=== PATIENT | female | born 1945 | race Caucasian/White ===

== ENCOUNTER 2022-05-11 14:10 | Emergency (ER) | payer OTHER, BC ==
--- NOTE | 2022-05-11 14:38 | EDPHYS ---
Physician Documentation [facility] Name: Tram Mahajan Age: 76 yrs Sex: Female : 1945 Arrival Date: 05/11/2022 Time: 14:13 Bed IW3 Private MD: Travon Gomez S ED Physician Titi Delaney HPI: 05/11 14:41 This 76 yrs old Female presents to ER via Ambulatory with complaints of Constipation. sb4 14:41 Patient is a 76-year-old female with Parkinson's who presented to the emergency sb4 department with complaints of constipation. Patient states that she has not had a bowel movement in 4 days. She denies any abdominal pain, nausea, vomiting. She states that is typical for her to go 4 days without a bowel movement but feels "blocked up" she denies any opioid use.. Historical: - Allergies: 14:32 PENICILLINS; ko1 - PMHx: 14:32 Parkinson's disease; ko1 - Immunization history:: Adult Immunizations unknown. - Social history:: Smoking status: Patient denies any tobacco usage or history of. ROS: 14:41 Constitutional: Negative for fever, chills, and weight loss, Eyes: Negative for injury, sb4 pain, redness, and discharge, Cardiovascular: Negative for chest pain, palpitations, and edema, Respiratory: Negative for shortness of breath, cough, wheezing, and pleuritic chest pain, : Negative for injury, bleeding, discharge, and swelling, MS/Extremity: Negative for injury and deformity, Skin: Negative for injury, rash, and discoloration. 14:41 Abdomen/GI: Positive for constipation, Negative for abdominal pain, nausea, vomiting, and diarrhea. Exam: 14:41 Constitutional: This is a well developed, well nourished patient who is awake, alert, sb4 and in no acute distress. Head/Face: Normocephalic, atraumatic. Eyes: Extra-ocular motions intact. Periorbital areas with no swelling, redness, or edema. ENT: Mucous membranes moist. Cardiovascular: Regular rate and rhythm with a normal S1 and S2. Respiratory: No increased work of breathing, no retractions or nasal flaring. Abdomen/GI: Soft, non-tender, no distension. Skin: Warm, dry with normal turgor. Normal color with no rashes, no lesions, and no evidence of cellulitis. MS/ Extremity: Pulses equal, no cyanosis. Neurovascular intact. Full, normal range of motion. 14:41 Psych: Exam negative for hallucinations, delusions, inappropriate behavior, Behavior/mood is Affect is flat. Vital Signs: 14:31 BP 135 / 74; Pulse 88; Resp 16; Temp 97.8; Pulse Ox 97% ; Weight 62.6 kg; Height 5 ft. ko1 2 in. (157.48 cm); Pain 0/10; 14:31 Body Mass Index 25.24 (62.60 kg, 157.48 cm) ko1 MDM: 14:37 Patient medically screened. sb4 14:41 Data reviewed: vital signs, nurses notes, and as a result, I will discharge patient. ED sb4 course: Discussed with patient that there is no need for further workup. Vitals are stable. She has no abdominal pain or distension. Will give lactulose here and dc with prescription for colace. Patient is agreeable with plan of treatment. . Administered Medications: 14:50 Drug: Lactulose 10 grams Volume: 15 ml; Route: PO; ko1 Disposition: 05/12 07:14 Co-signature as Attending Physician, Titi Delaney MD I reviewed the patient's care rn provided by the Advanced Practice Provider and agree with the diagnosis and treatment plan. Disposition Summary: 05/11/22 14:37 Discharge Ordered Location: Home sb4 Problem: an ongoing problem sb4 Symptoms: are unchanged sb4 Condition: Stable sb4 Diagnosis - Constipation sb4 Followup: sb4 - With: Travon Gomez MD - When: As needed - Reason: Recheck today's complaints, Continuance of care, Re-evaluation by your physician Discharge Instructions: - Discharge Summary Sheet sb4 - Constipation, Adult, [id number] sb4 Forms: - Medication Reconciliation Form sb4 - Thank You Letter sb4 - Antibiotic Education sb4 - Prescription Opioid Use sb4 Prescriptions: - Colace 100 mg Oral Tablet - take 1 tablet by ORAL route every 12 hours; 14 tablet; Refills: 0, Product sb4 Selection Permitted Signatures: Titi Delaney MD MD rn Oliver, Kathy, RN RN ko1 Lawanda Brink PA-C PA-C sb4
--- NOTE | 2022-05-11 14:38 | ER ---
Nurse's Notes [facility] Name: Tram Mahajan Age: 76 yrs Sex: Female : 1945 Arrival Date: 05/11/2022 Time: 14:13 Bed IW3 Private MD: Travon Gomez S Diagnosis: Constipation Presentation: 05/11 14:31 Chief complaint: Patient states: I am constipated and cant have a bowel movement, last ko1 bm was 4 days ago. Coronavirus screen: At this time, the client does not indicate any symptoms associated with coronavirus-19. Ebola Screen: No symptoms or risks identified at this time. Initial Sepsis Screen: Does the patient meet any 2 criteria? No. Patient's initial sepsis screen is negative. Does the patient have a suspected source of infection? No. Patient's initial sepsis screen is negative. Risk Assessment: Do you want to hurt yourself or someone else? Patient reports no desire to harm self or others. Onset of symptoms was May 11, 2022. 14:31 Method Of Arrival: Ambulatory ko1 14:31 Acuity: IRMA 4 ko1 Triage Assessment: 14:32 General: Appears in no apparent distress. uncomfortable, Behavior is calm, cooperative, ko1 appropriate for age. Pain: Denies pain. GI: Reports constipation. Historical: - Allergies: 14:32 PENICILLINS; ko1 - PMHx: 14:32 Parkinson's disease; ko1 - Immunization history:: Adult Immunizations unknown. - Social history:: Smoking status: Patient denies any tobacco usage or history of. Screenin:53 [facility] ED Fall Risk Assessment (Adult) History of falling in the last 3 months, ko1 including since admission No falls in past 3 months (0 pts) Confusion or Disorientation No (0 pts) Intoxicated or Sedated No (0 pts) Impaired Gait No (0 pts) Mobility Assist Device Used No (0 pt) Altered Elimination No (0 pt) Score/Fall Risk Level 0 - 2 = Low Risk Oriented to surroundings, Maintained a safe environment, Educated pt \T\ family on fall prevention, incl call for assistance when getting out of bed, Assessed \T\ reinforced patient's understanding of fall precautions, Provided non-skid footwear, Hourly rounding (assess needs \T\ fall precautionary measures) done, Used ambulatory aids as needed (educated on \T\ assisted with), Used gait belt as appropriate. Abuse screen: Denies threats or abuse. Denies injuries from another. Nutritional screening: No deficits noted. Tuberculosis screening: No symptoms or risk factors identified. Assessment: 14:53 General: Appears in no apparent distress. comfortable, Behavior is calm, cooperative, ko1 appropriate for age. Pain: Denies pain. Neuro: No deficits noted. Cardiovascular: No deficits noted. Respiratory: No deficits noted. GI: Bowel sounds present X 4 quads. Abd is soft and non tender X 4 quads. GI: Reports constipation. : No deficits noted. EENT: No deficits noted. Derm: No deficits noted. Musculoskeletal: No deficits noted. Vital Signs: 14:31 BP 135 / 74; Pulse 88; Resp 16; Temp 97.8; Pulse Ox 97% ; Weight 62.6 kg; Height 5 ft. ko1 2 in. (157.48 cm); Pain 0/10; 14:31 Body Mass Index 25.24 (62.60 kg, 157.48 cm) ko1 ED Course: 14:13 Patient arrived in ED. as 14:14 Travon Gomez MD is Private Physician. as 14:16 Lawanda Brink [facility]. sb4 14:16 Titi Delaney MD is Attending Physician. sb4 14:32 Triage completed. ko1 14:32 Arm band placed on right wrist. Patient placed in waiting room, Patient notified of ko1 wait time. 14:37 Travon Gomez MD is Referral Physician. sb4 14:53 Patient has correct armband on for positive identification. ko1 14:53 No provider procedures requiring assistance completed. Patient did not have IV access ko1 during this emergency room visit. Administered Medications: 14:50 Drug: Lactulose 10 grams Volume: 15 ml; Route: PO; ko1 Medication: 14:53 VIS not applicable for this client. ko1 Outcome: 14:37 Discharge ordered by . sb4 14:53 Discharged to home ambulatory. ko1 14:53 Condition: stable 14:53 Discharge instructions given to patient, Instructed on discharge instructions, follow up and referral plans. medication usage, Demonstrated understanding of instructions, follow-up care, medications, Prescriptions given X 1. 14:55 Patient left the ED. ko1 Signatures: Heiyd Laboy Kathy, RN RN ko1 Lawanda Brink, BETHEL PAOriana sb4
[2022-05-11] MEDS ORDERED: LACTULOSE 20 GM/30 ML UCUP ONE (14:54)
[2022-05-11 15:19] VITALS: BP 135/74; TEMP 97.8; O2SAT 97
== END 2022-05-11 14:55 | disposition home or self-care (01) ==
LOC: ER 14:10
DX: K59.00 Constipation, unspecified (principal); Z88.0 Allergy status to penicillin; G20 Parkinson's disease
CPT/HCPCS: 99283

== ENCOUNTER 2022-08-22 14:38 | Emergency (ER) | payer OTHER, BC ==
[2022-08-22] MEDS ORDERED: HYDROCODONE/APAP 5/325 MG TAB ONE (17:05)
--- NOTE | 2022-08-22 18:03 | RAD REPORT ---
EXAM DESCRIPTION: RAD - Pelvis - 08/22/2022 4:06 pm CLINICAL HISTORY: left hip pain COMPARISON: No comparisons TECHNIQUE: Single AP view of the pelvis. FINDINGS: The visualized pelvic ring is intact. No suspicious osseous lesions. No significant degene rative changes or erosions of the hip joints. Other pelvic joints are unremarkable. Visualized aspect s of the abdomen and soft tissues are unremarkable. Degenerative changes at L4-5 with asymmetric disc space narrowing on the left. IMPRESSION: No acute osseous abnormality of the bony pelvis.
--- NOTE | 2022-08-22 18:03 | RAD REPORT ---
EXAM DESCRIPTION: RAD - Femur Left - 08/22/2022 4:06 pm CLINICAL HISTORY: PAIN COMPARISON: No comparisons TECHNIQUE: Left femur, 2 views. FINDINGS: No fracture is identified. There is no dislocation or periosteal reaction noted. No acute or suspicious bony finding. [id number] degenerative changes of the knee. IMPRESSION: Negative left femur examination.
--- NOTE | 2022-08-22 20:04 | RAD REPORT ---
EXAM DESCRIPTION: CT - Stone Protocol - 08/22/2022 7:29 pm CLINICAL HISTORY: low back and left hip pain COMPARISON: No comparisons TECHNIQUE: Thin cut axial CT imaging of the abdomen and pelvis was performed without IV contrast. Mu ltiplanar reformats were generated and reviewed. All CT scans are performed using dose optimization technique as appropriate and may include automated exposure control or mA/KV adjustment according to patient size. FINDINGS: No suspicious findings in the lung bases. The liver demonstrates multiple well-circumscribed fluid attenuation ovoid lesions the largest in the left lobe measuring 3.1 centimeter. Adrenal glands, spleen, and pancreas show no suspicious findings . Gallbladder and biliary tree are also without suspicious finding. Symmetric renal contour, without suspicious parenchymal findings within limits of noncontrast techniq ue. No evidence of hydroureteronephrosis. Left renal mid pole 3 millimeter nonobstructing calculus. . No dilated bowel loops or bowel wall thickening. Colonic diverticulosis. Left adnexal 5.6 x 4.7 centi meter cyst with punctate calcifications along its posteroinferior wall. No free air, free fluid or in flammatory stranding. No hernia, mass or bulky lymphadenopathy. The urinary bladder is without signif icant finding. No suspicious bony findings. Degenerative changes of the lumbar spine with levoconvex scoliosis cente red at L1-2. IMPRESSION: Nonobstructing left renal 3 millimeter calculus. Incidentally noted left adnexal 5.6 x 4.7 centimeter cyst with wall calcifications. This is likely be nign, and can be sonographically evaluated on an outpatient basis for better characterization. No other acute intra-abdominal process.
[2022-08-22] MEDS ORDERED: FENTANYL CITR 100 MCG/2 ML ONE (20:18)
--- NOTE | 2022-08-22 21:08 | ER ---
Nurse's Notes [facility] Name: Tram Mahajan Age: 76 yrs Sex: Female : 1945 Arrival Date: 08/22/2022 Time: 14:38 Bed 15 Private MD: Travon Gomez S Diagnosis: Pain in left hip;Sciatica, left side Presentation: 08/22 15:28 Chief complaint: Patient states: Left hip pain since this morning "i had a charley la1 horse". Took a pain pill. Denies injury. Coronavirus screen: Vaccine status: Patient reports receiving the 2nd dose of the covid vaccine. Ebola Screen: Patient denies travel to an Ebola-affected area in the 21 days before illness onset. Initial Sepsis Screen: Does the patient meet any 2 criteria? No. Patient's initial sepsis screen is negative. Does the patient have a suspected source of infection? No. Patient's initial sepsis screen is negative. Risk Assessment: Do you want to hurt yourself or someone else? Patient reports no desire to harm self or others. Onset of symptoms was August 22, 2022. 15:28 Method Of Arrival: Ambulatory [facility] 15:28 Acuity: IRMA 3 [facility] Triage Assessment: 16:24 General: Appears in no apparent distress. Behavior is calm, cooperative, appropriate bp for age. Pain: Complains of pain in left hip. EENT: No deficits noted. Neuro: No deficits noted. Cardiovascular: No deficits noted. Respiratory: No deficits noted. GI: No signs and/or symptoms were reported involving the gastrointestinal system. : No signs and/or symptoms were reported regarding the genitourinary system. Derm: No deficits noted. Musculoskeletal: No deficits noted. Historical: - Allergies: 15:32 PENICILLINS; nj1 - PMHx: 15:32 Parkinson's disease; nj1 - PSHx: 15:33 Knee replacement, right; Brain stimulator; nj1 - Immunization history:: Client reports receiving the 2nd dose of the Covid vaccine. - Social history:: Smoking status: Patient denies any tobacco usage or history of. Screenin:26 [facility] ED Fall Risk Assessment (Adult) History of falling in the last 3 months, bp including since admission No falls in past 3 months (0 pts). Abuse screen: Denies threats or abuse. Denies injuries from another. Nutritional screening: No deficits noted. Tuberculosis screening: No symptoms or risk factors identified. Assessment: 16:26 General: SEE TRIAGE NOTE. bp 20:00 General: Appears in no apparent distress. comfortable, Behavior is calm, cooperative. lg3 Pain: Complains of pain in left hip Pain currently is 8 out of 10 on a pain scale. Neuro: No deficits noted. Avalos Agitation-Sedation Scale (RASS): 0 - Alert and Calm Level of Consciousness is awake, alert, obeys commands, Oriented to person, place, time, situation. Cardiovascular: No deficits noted. Denies chest pain, shortness of breath, Capillary refill < 3 seconds Clubbing of nail beds is absent JVD is absent Patient's skin is warm and dry. Respiratory: No deficits noted. Airway is patent Trachea midline Respiratory effort is even, unlabored, Respiratory pattern is regular, symmetrical. GI: No deficits noted. No signs and/or symptoms were reported involving the gastrointestinal system. : No deficits noted. No signs and/or symptoms were reported regarding the genitourinary system. EENT: No deficits noted. No signs and/or symptoms were reported regarding the EENT system. Derm: No deficits noted. No signs and/or symptoms reported regarding the dermatologic system. Skin is intact, is healthy with good turgor, Skin is dry, Skin is normal, Skin temperature is warm. Musculoskeletal: Reports pain in left hip. 21:19 Reassessment: Patient appears in no apparent distress at this time. No changes from lg3 previously documented assessment. Patient and/or family updated on plan of care and expected duration. Pain level reassessed. Patient is alert, oriented x 3, equal unlabored respirations, skin warm/dry/pink. Patient states feeling better. Patient states symptoms have improved. Vital Signs: 15:28 BP 157 / 74; Pulse 89; Resp 18; Temp 98.2(TE); Pulse Ox 100% on R/A; Weight 62.14 kg; nj1 Height 5 ft. 2 in. ; Pain 7/10; 20:00 BP 131 / 77; Pulse 81; Resp 17 S; Pulse Ox 100% on R/A; lg3 21:19 BP 136 / 71; Pulse 88; Resp 17 S; Pulse Ox 99% on R/A; lg3 15:28 Body Mass Index 25.06 (62.14 kg, 157.48 cm) nj1 15:28 Pain Scale: Adult nj1 ED Course: 14:42 Patient arrived in ED. mr 14:42 Travon Gomez MD is Private Physician. mr 15:14 Aguilar Javed PA is PHCP. cp 15:14 Aguilar Brown MD is Attending Physician. cp 15:32 Triage completed. nj1 15:33 Arm band placed on right wrist. nj1 16:08 XRAY Pelvis In Process Unspecified. EDMS 16:08 XRAY Femur LEFT In Process Unspecified. EDMS 16:24 Kee Acevedo, ELAINA is Primary Nurse. bp 16:26 Patient has correct armband on for positive identification. Bed in low position. Call bp light in reach. Side rails up X2. 19:31 CT Stone Protocol In Process Unspecified. EDMS 21:19 No provider procedures requiring assistance completed. Patient did not have IV access lg3 during this emergency room visit. Administered Medications: 17:00 Drug: HYDROcodone-acetaminophen PO 5 mg-325 mg 1 tabs Route: PO; bp 20:41 Follow up: Response: No adverse reaction; No change in condition lg3 20:31 Drug: fentaNYL (PF) IM 25 mcg Route: IM; Site: right deltoid; lg3 20:58 Follow up: Response: No adverse reaction; Pain is decreased; RASS: Alert and Calm (0) lg3 21:18 Drug: Lidoderm Topical Patch 5 % (700 mg/patch) 1 patches Route: Topical; Site: lg3 affected area; 21:18 Follow up: Response: No adverse reaction lg3 21:18 Drug: Dexamethasone IM 10 mg Route: IM; Site: left gluteus; lg3 21:18 Follow up: Response: No adverse reaction lg3 21:18 Drug: Ketorolac IM 15 mg Route: IM; Site: left gluteus; lg3 21:18 Follow up: Response: No adverse reaction lg3 Medication: 16:26 VIS not applicable for this client. bp Outcome: 21:07 Discharge ordered by . cp 21:19 Discharged to home via wheelchair, with family. lg3 21:19 Condition: stable 21:19 Discharge instructions given to patient, family, Instructed on discharge instructions, follow up and referral plans. medication usage, Demonstrated understanding of instructions, follow-up care, medications, Prescriptions given X 2. 21:27 Patient left the ED. lg3 Signatures: Dispatcher [employer] EDCO Marcy Pal mr Aguilar Javed PA PA cp Peltier, Brian, RN RN bp Glo Márquez RN RN lg3 Iesha Bryan RN RN nj1 Corrections: (The following items were deleted from the chart) 15:34 15:28 Pulse 89bpm; Resp 18bpm; Pulse Ox 100% RA; Temp 98.2F Temporal; 62.14 kg; Height nj1 5 ft. 2 in.; BMI: 25.0; Pain 7/10, Adult; nj1
--- NOTE | 2022-08-22 21:08 | EDPHYS ---
Physician Documentation [facility] Name: Tram Mahajan Age: 76 yrs Sex: Female : 1945 Arrival Date: 08/22/2022 Time: 14:38 Bed 15 Private MD: Travon Gomez S ED Physician Aguilar Brown HPI: 08/22 16:00 This 76 yrs old Female presents to ER via Ambulatory with complaints of Hip Pain. cp 16:00 The patient or guardian reports pain. sustained from unknown reason, There is no cp obvious deformity, The patient is able to ambulate with assistance. The patient is able to bear partial body weight. The complaints affect the left hip. Onset: The symptoms/episode began/occurred this morning. Associated signs and symptoms: Pertinent positives: left buttock pain, Pertinent negatives: abdominal pain, chest pain, diarrhea, dizziness, dysuria, fever. Severity of symptoms: in the emergency department the symptoms are unchanged, despite home interventions. Patient denies injury. Reports pain since this morning. Took acetaminophen w/o relief. Historical: - Allergies: 15:32 PENICILLINS; nj1 - PMHx: 15:32 Parkinson's disease; nj1 - PSHx: 15:33 Knee replacement, right; Brain stimulator; nj1 - Immunization history:: Client reports receiving the 2nd dose of the Covid vaccine. - Social history:: Smoking status: Patient denies any tobacco usage or history of. ROS: 16:05 Constitutional: Negative for body aches, chills, fever, poor PO intake. cp 16:05 Eyes: Negative for injury, pain, redness, and discharge. cp 16:05 ENT: Negative for drainage from ear(s), ear pain, sore throat, difficulty swallowing, difficulty handling secretions. 16:05 Cardiovascular: Negative for chest pain, edema, palpitations. 16:05 Respiratory: Negative for cough, shortness of breath, wheezing. 16:05 Abdomen/GI: Negative for abdominal pain, nausea, vomiting, and diarrhea. 16:05 Back: Positive for pain to left buttock, Negative for injury or acute deformity. 16:05 MS/extremity: Positive for pain, of the left hip, Negative for injury or acute deformity. 16:05 Neuro: Negative for altered mental status, dizziness, headache, numbness, syncope, weakness. 16:05 All other systems are negative. Exam: 16:10 Constitutional: The patient appears in no acute distress, alert, awake, cp non-diaphoretic, non-toxic, well developed, well nourished, uncomfortable. 16:10 Head/Face: Normocephalic, atraumatic. cp 16:10 Eyes: Periorbital structures: appear normal, Conjunctiva: normal, no exudate, no injection, Sclera: no appreciated abnormality, Lids and lashes: appear normal, bilaterally. 16:10 ENT: External ear(s): are unremarkable, Nose: is normal, Mouth: Lips: moist, Oral mucosa: moist, Posterior pharynx: is normal, airway is patent, no erythema, no exudate. 16:10 Neck: ROM/movement: is normal, is supple, without pain, no range of motions limitations. 16:10 Chest/axilla: Inspection: normal, Palpation: is normal, no crepitus, no tenderness. 16:10 Cardiovascular: Rate: normal, Rhythm: regular. 16:10 Respiratory: the patient does not display signs of respiratory distress, Respirations: normal, no use of accessory muscles, no retractions, labored breathing, is not present, Breath sounds: are clear throughout, no decreased breath sounds, no stridor, no wheezing. 16:10 Abdomen/GI: Inspection: abdomen appears normal, Palpation: abdomen is soft and non-tender. 16:10 Back: pain, that is moderate, of the left low back, ROM is painful, with all movement, vertebral tenderness, is not appreciated. 16:10 Musculoskeletal/extremity: Extremities: noted in the left hip: pain, tenderness, There is no evidence of decreased ROM, deformity, ROM: limited passive range of motion due to pain, in the left hip. 16:10 Neuro: Orientation: no acute changes, per family, Mentation: no acute changes, per family. Vital Signs: 15:28 BP 157 / 74; Pulse 89; Resp 18; Temp 98.2(TE); Pulse Ox 100% on R/A; Weight 62.14 kg; nj1 Height 5 ft. 2 in. ; Pain 7/10; 20:00 BP 131 / 77; Pulse 81; Resp 17 S; Pulse Ox 100% on R/A; lg3 21:19 BP 136 / 71; Pulse 88; Resp 17 S; Pulse Ox 99% on R/A; lg3 15:28 Body Mass Index 25.06 (62.14 kg, 157.48 cm) nj1 15:28 Pain Scale: Adult nj1 MDM: 15:36 Patient medically screened. [facility] 17:00 Differential diagnosis: hip fracture, intertrochanteric fracture, femoral neck cp fracture, femoral shaft fracture, bursitis, sciatica, bulging disc. 21:06 Data reviewed: vital signs, nurses notes, radiologic studies, CT scan, plain films. 21:06 Consideration of Admission/Observation Escalation of care including cp admission/observation considered. I considered the following discharge prescriptions or medication management in the emergency department Medications were administered in the Emergency Department. See MAR. Counseling: I had a detailed discussion with the patient and/or guardian regarding: the historical points, exam findings, and any diagnostic results supporting the discharge/admit diagnosis, radiology results, the need for outpatient follow up, a family practitioner, to return to the emergency department if symptoms worsen or persist or if there are any questions or concerns that arise at home. Response to treatment: the patient's symptoms have markedly improved after treatment, and as a result, I will discharge patient. 08/22 15:33 Order name: XRAY Pelvis; Complete Time: 18:16 08/22 18:16 Interpretation: Report reviewed. 08/22 15:33 Order name: XRAY Femur LEFT; Complete Time: 18:16 08/22 18:16 Interpretation: Reviewed. 08/22 18:39 Order name: CT Stone Protocol; Complete Time: 20:23 cp Administered Medications: 17:00 Drug: HYDROcodone-acetaminophen PO 5 mg-325 mg 1 tabs Route: PO; bp 20:41 Follow up: Response: No adverse reaction; No change in condition lg3 20:31 Drug: fentaNYL (PF) IM 25 mcg Route: IM; Site: right deltoid; lg3 20:58 Follow up: Response: No adverse reaction; Pain is decreased; RASS: Alert and Calm (0) lg3 21:18 Drug: Lidoderm Topical Patch 5 % (700 mg/patch) 1 patches Route: Topical; Site: lg3 affected area; 21:18 Follow up: Response: No adverse reaction lg3 21:18 Drug: Dexamethasone IM 10 mg Route: IM; Site: left gluteus; lg3 21:18 Follow up: Response: No adverse reaction lg3 21:18 Drug: Ketorolac IM 15 mg Route: IM; Site: left gluteus; lg3 21:18 Follow up: Response: No adverse reaction lg3 Disposition Summary: 08/22/22 21:07 Discharge Ordered Location: Home cp Problem: new cp Symptoms: have improved cp Condition: Stable cp Diagnosis - Pain in left hip cp - Sciatica, left side cp Followup: cp - With: Private Physician - When: 2 - 3 days - Reason: Recheck today's complaints Discharge Instructions: - Discharge Summary Sheet cp - Sciatica cp - Hip Pain cp - Back Exercises cp Forms: - Medication Reconciliation Form cp - Thank You Letter cp - Antibiotic Education cp - Prescription Opioid Use cp Prescriptions: - Tramadol 50 mg Oral Tablet - take 1 tablet by ORAL route every 8 hours as needed; 12 tablet; Refills: 0, cp Product Selection Permitted - Medrol (Samir) 4 mg Oral Tablets, Dose Pack - take 1 tablet by ORAL route as directed - follow package instructions; 1 cp packet; Refills: 0, Product Selection Permitted Signatures: Dispatcher [employer] EDAguilar Saenz MD MD cha Page, Corey, PA PA cp Kee Acevedo RN RN bp Glo Márquez, ELAINA RN lg3 Iesha Bryan RN RN nj1 Corrections: (The following items were deleted from the chart) 21:21 20:25 Misc. Order ordered. cp lg3
[2022-08-22] MEDS ORDERED: KETOROLAC 30 MG/ML INJ ONE (21:18)
[2022-08-22] MEDS ORDERED: LIDOCAINE 4% PATCH ONE (21:18)
[2022-08-22] MEDS ORDERED: dexAMETHasone 10 MG/ML VIAL ONE (21:18)
[2022-08-22 22:16] VITALS: TEMP 98.2
[2022-08-22 22:19] VITALS: BP 136/71; O2SAT 99
== END 2022-08-22 21:27 | disposition home or self-care (01) ==
LOC: ER 14:38
DX: M54.32 Sciatica, left side (principal); G20 Parkinson's disease; Z88.0 Allergy status to penicillin
CPT/HCPCS: 76377; 74176; 72170; 73552; J2001; J3010; J1100

== ENCOUNTER 2022-08-30 10:03 | Emergency (ER) | payer OTHER, BC ==
[2022-08-30] MEDS ORDERED: KETOROLAC 30 MG/ML INJ ONE (11:08)
--- NOTE | 2022-08-30 11:37 | RAD REPORT ---
EXAM DESCRIPTION: CT - Spine Lumbar Wo Con - 08/30/2022 11:05 am CLINICAL HISTORY: Hip pain/sciatica COMPARISON: CT abdomen and pelvis 08/22/2022 TECHNIQUE: Axial noncontrast CT imaging of the lumbar spine was performed with coronal and sagittal re-formatted images. All CT scans are performed using dose optimization technique as appropriate and may include automated exposure control or mA/KV adjustment according to patient size. FINDINGS: No acute lumbar spine fracture seen. No aggressive marrow lesions. Multilevel degenerative changes with endplate and facet remodeling, contributing to multilevel spondy lolisthesis, including 3 millimeter retrolisthesis of L3 over L4, and left lateral listhesis ease of L2 over L3 and L3 over L4, with degrees of asymmetric disc height loss most pronounced at L1-2 and L2 -3 on the right, with disc vacuum phenomenon. Paraspinal tissues are normal in thickness. No paraspinal abscess or hematoma seen. At T12-L1: Small posterior disc bulge. Asymmetric disc height loss on the right. No significant canal stenosis or neural foraminal narrowing. At L1-2: Broad-based posterior disc bulge. Asymmetric disc height loss on the right and annular land examiner alization on the left. No significant central canal stenosis. Mild right bony neural foraminal narrow ing. At L2-3: Pronounced asymmetric disc height loss on the right, with posterior disc osteophyte complex formation. Overall moderate central canal stenosis, worsened by presence of bilateral facet arthropat hy and ligamentum flavum buckling. Additional narrowing of the right lateral recess. Right severe and left moderate to severe neural foraminal narrowing. At L3-4: Posterior broad-based disc bulge with uncovering of the inferior disc annulus margin. Facet arthropathy and ligamentum flavum buckling contribute to at least moderate central canal stenosis met chris right lateral recess narrowing. Right moderate and left severe neural foraminal narrowing. At L4-5: Broad-based disc bulge. Bilateral facet arthropathy and ligamentum flavum buckling contribut e to moderate central canal stenosis. Right mild to moderate and left moderate to severe neural claudia inal narrowing. At L5-S1: Broad-based posterior disc bulge. Bilateral facet arthropathy worse on the left. No signifi cant central canal or foraminal stenosis. Intervertebral disc disease assessment is inherently limited by CT. Within these limitations, no high -grade canal stenosis suspected. Evaluation of the pelvic and abdominal structures reveals a left adnexal cystic lesion with punctate focus of wall calcification, measuring 5.6 x 4.8 centimeter. IMPRESSION: No acute findings. Advanced multilevel lumbar spine degenerative changes as detailed above with multilevel spondylolisth esis. Within limits of CT evaluation, there appears to be moderate central canal stenosis at L2-3 and L4-5 and moderate to severe central canal stenosis at L3-4. Variable degrees of neural foraminal narrowing , up to severe on the left at L3-4 and on the right at L2-3. Please consider MRI follow-up for additional assessment of disc disease and neural involvement if cli nically desired.
--- NOTE | 2022-08-30 12:06 | EDPHYS ---
Physician Documentation [facility] Name: Tram Mahajan Age: 76 yrs Sex: Female : 1945 Arrival Date: 08/30/2022 Time: 10:03 Bed 8 Private MD: Travon Gomez S ED Physician Ryan Cm HPI: 08/30 10:55 This 76 yrs old Female presents to ER via Wheelchair with complaints of Back Pain. snw 10:55 The patient presents with pain that is acute, with no known mechanism of injury. The snw symptoms are located in the left hip. Onset: The symptoms/episode began/occurred acutely. The pain radiates to the left quadriceps. Associated signs and symptoms: Pertinent positives: weakness. The problem was sustained during a fall, last week. Severity of symptoms: At their worst the symptoms were moderate, severe. It is unknown whether or not the patient has had similar symptoms in the past. pt seen here for similar complaint within the past 2 weeks, give steroids and got better. Last steroid dose was two days ago. Pt very uncomfortable this am. Historical: - Allergies: 10:12 PENICILLINS; nj1 - PMHx: 10:12 Parkinson's disease; nj1 - PSHx: 10:12 brain stimulator; Knee replacement, right; nj1 - Immunization history:: Client reports receiving the 2nd dose of the Covid vaccine. - Social history:: Smoking status: Patient denies any tobacco usage or history of. ROS: 10:52 Constitutional: Negative for fever, chills, and weight loss, Eyes: Negative for injury, snw pain, redness, and discharge, ENT: Negative for injury, pain, and discharge, Neck: Negative for injury, pain, and swelling, Cardiovascular: Negative for chest pain, palpitations, and edema, Respiratory: Negative for shortness of breath, cough, wheezing, and pleuritic chest pain, Abdomen/GI: Negative for abdominal pain, nausea, vomiting, diarrhea, and constipation, Back: Negative for injury and pain, : Negative for injury, bleeding, discharge, and swelling, Skin: Negative for injury, rash, and discoloration, Neuro: Negative for headache, weakness, numbness, tingling, and seizure, Psych: Negative for depression, anxiety, suicide ideation, homicidal ideation, and hallucinations. 10:52 MS/extremity: Positive for pain, tenderness, of the left upper thigh and left quadriceps. Exam: 10:47 Constitutional: This is a well developed, well nourished patient who is awake, alert, snw and in no acute distress. Head/Face: Normocephalic, atraumatic. Eyes: Pupils equal round and reactive to light, extra-ocular motions intact. Lids and lashes normal. Conjunctiva and sclera are non-icteric and not injected. Cornea within normal limits. Periorbital areas with no swelling, redness, or edema. ENT: Nares patent. No nasal discharge, no septal abnormalities noted. Tympanic membranes are normal and external auditory canals are clear. Oropharynx with no redness, swelling, or masses, exudates, or evidence of obstruction, uvula midline. Mucous membranes moist. Neck: Trachea midline, no thyromegaly or masses palpated, and no cervical lymphadenopathy. Supple, full range of motion without nuchal rigidity, or vertebral point tenderness. No Meningismus. Chest/axilla: Normal chest wall appearance and motion. Nontender with no deformity. No lesions are appreciated. Cardiovascular: Regular rate and rhythm with a normal S1 and S2. No gallops, murmurs, or rubs. Normal PMI, no JVD. No pulse deficits. Respiratory: Lungs have equal breath sounds bilaterally, clear to auscultation and percussion. No rales, rhonchi or wheezes noted. No increased work of breathing, no retractions or nasal flaring. Abdomen/GI: Soft, non-tender, with normal bowel sounds. No distension or tympany. No guarding or rebound. No evidence of tenderness throughout. Back: No spinal tenderness. No costovertebral tenderness. Full range of motion. Skin: Warm, dry with normal turgor. Normal color with no rashes, no lesions, and no evidence of cellulitis. Psych: Awake, alert, with orientation to person, place and time. Behavior, mood, and affect are within normal limits. 10:47 Musculoskeletal/extremity: Extremities: grossly normal except: tenderness, tenderness, , Circulation is intact in all extremities. Sensation intact. 10:47 Neuro: Orientation: is normal, Mentation: is normal, Babinski testing is normal. Vital Signs: 10:09 BP 109 / 57; Pulse 74; Resp 18; Temp 98.8; Pulse Ox 98% ; Weight 62.6 kg; Height 5 ft. nj1 2 in. ; Pain 7/10; 10:09 Body Mass Index 25.24 (62.60 kg, 157.48 cm) nj1 10:09 Pain Scale: Adult nj1 MDM: 10:09 Patient medically screened. snw 12:07 Differential diagnosis: arthritis, Fracture Osteoarthritis Osteoporosis ruptured disc, snw sprain, vertebral fracture. Data reviewed: vital signs, nurses notes, radiologic studies. I considered the following discharge prescriptions or medication management in the emergency department Medications were administered in the Emergency Department. See MAR. Counseling: I had a detailed discussion with the patient and/or guardian regarding: the historical points, exam findings, and any diagnostic results supporting the discharge/admit diagnosis, radiology results, the need for outpatient follow up, for definitive care, a neurosurgeon. Special discussion: Based on the history and exam findings, there is no indication for further emergent testing or inpatient evaluation. I discussed with the patient/guardian the need to see the primary care provider for further evaluation of the symptoms. 08/30 10:55 Order name: CT Lumbar Spine Wo Con; Complete Time: 11:46 snw 08/30 11:51 Order name: Misc. Order: please help pt ambulate with w/c or walker to assess ability; snw Complete Time: 11:58 Administered Medications: 11:23 Drug: Ketorolac IM 15 mg Route: IM; Site: left deltoid; ld1 11:58 Follow up: Response: No adverse reaction ld1 Disposition: 14:51 Co-signature as Attending Physician, Ryan SALVADOR was immediately available on-site ms3 in the Emergency Department for consultation in the care of the patient. Disposition Summary: 08/30/22 12:05 Discharge Ordered Location: Home snw Condition: Stable snw Diagnosis - Spondylolisthesis, lumbar region snw - Sciatica, left side snw Followup: snw - With: Travon Gomez MD - When: 2 - 3 days - Reason: Recheck today's complaints, Continuance of care, Re-evaluation by your physician Discharge Instructions: - Discharge Summary Sheet snw - Sciatica snw - Spondylolisthesis Rehab-SportsMed snw - Spondylolisthesis snw Forms: - Medication Reconciliation Form snw - Thank You Letter snw - Antibiotic Education snw - Prescription Opioid Use snw Prescriptions: - Mobic 7.5 mg Oral Tablet - take 1 tablet by ORAL route once daily take with food; 20 tablet; Refills: 0, snw Product Selection Permitted Signatures: Dispatcher [employer] EDSolange Hurley FNP-C BRIM POUNCER MACHINE OPERATOR-Csnw Ryan Cm, DO ms3 Manisha Cm RN RN ld1 Iesha Bryan RN RN nj1
--- NOTE | 2022-08-30 12:06 | ER ---
Nurse's Notes [facility] Name: Tram Mahajan Age: 76 yrs Sex: Female : 1945 Arrival Date: 08/30/2022 Time: 10:03 Bed 8 Private MD: Travon Gomez S Diagnosis: Spondylolisthesis, lumbar region;Sciatica, left side Presentation: 08/30 10:09 Chief complaint: Patient states: Pt believes she is having trouble with sciatica pain. nj1 CO left sided low back pain that radiates to left thigh. Onset was last Saturday, seen here, pain got better but it seems that today is starting to get worse. Coronavirus screen: Vaccine status: Patient reports receiving the 2nd dose of the covid vaccine. Ebola Screen: No symptoms or risks identified at this time. Initial Sepsis Screen: Does the patient meet any 2 criteria? No. Patient's initial sepsis screen is negative. Does the patient have a suspected source of infection? No. Patient's initial sepsis screen is negative. Risk Assessment: Do you want to hurt yourself or someone else? Patient reports no desire to harm self or others. Onset of symptoms was August 22, 2022. 10:09 Method Of Arrival: Wheelchair nj1 10:09 Acuity: IRMA 3 nj1 Triage Assessment: 12:11 General: Appears in no apparent distress. Behavior is calm, cooperative, appropriate ap3 for age. Pain: Complains of pain in left low back Pain radiates to left leg. Neuro: Level of Consciousness is awake, alert, obeys commands, Oriented to person, place, time, Speech is normal. Cardiovascular: Patient's skin is warm and dry. Respiratory: Airway is patent Respiratory effort is even, unlabored, Respiratory pattern is regular, symmetrical. Musculoskeletal: Range of motion: intact in all extremities. Historical: - Allergies: 10:12 PENICILLINS; nj1 - PMHx: 10:12 Parkinson's disease; nj1 - PSHx: 10:12 brain stimulator; Knee replacement, right; nj1 - Immunization history:: Client reports receiving the 2nd dose of the Covid vaccine. - Social history:: Smoking status: Patient denies any tobacco usage or history of. Screenin:10 Abuse screen: Denies threats or abuse. Nutritional screening: No deficits noted. ap3 Tuberculosis screening: No symptoms or risk factors identified. Assessment: 12:02 Reassessment: patient was able to ambulate with walker down the length of the hallway ap3 with walker. provider notified. Vital Signs: 10:09 BP 109 / 57; Pulse 74; Resp 18; Temp 98.8; Pulse Ox 98% ; Weight 62.6 kg; Height 5 ft. nj1 2 in. ; Pain 7/10; 10:09 Body Mass Index 25.24 (62.60 kg, 157.48 cm) nj1 10:09 Pain Scale: Adult nj1 ED Course: 10:04 Patient arrived in ED. mr 10:04 Travon Gomez MD is Private Physician. mr 10:05 Sol[facility] V[facility]C [facility] snw 10:05 Ryan Cm DO is Attending Physician. snw 10:12 Triage completed. nj1 10:13 Arm band placed on right wrist. nj1 10:36 Manisha Cm, ELAINA is Primary Nurse. ld1 11:07 CT Lumbar Spine Wo Con In Process Unspecified. EDMS 12:05 Travon Gomez MD is Referral Physician. snw 12:10 Patient has correct armband on for positive identification. Bed in low position. Side ap3 rails up X 1. Adult w/ patient. 12:11 No provider procedures requiring assistance completed. ap3 12:26 IV discontinued, intact, bleeding controlled, No redness/swelling at site. ld1 Administered Medications: 11:23 Drug: Ketorolac IM 15 mg Route: IM; Site: left deltoid; ld1 11:58 Follow up: Response: No adverse reaction ld1 Medication: 12:11 VIS not applicable for this client. ap3 Outcome: 12:05 Discharge ordered by . snw 12:26 Discharged to home via wheelchair, with family. ld1 12:26 Condition: stable 12:26 Discharge instructions given to patient, family, Instructed on discharge instructions, follow up and referral plans. Demonstrated understanding of instructions, follow-up care, medications, Prescriptions given X 1. 12:26 Patient left the ED. ld1 Signatures: Dispatcher [employer] EDKY Solange Viera FNP-C ADVERTISING MATERIAL DISTRIBUTOR-Yasmin Demarco Marcy mr Yamile Mariee RN RN ap3 Manisha Cm RN RN ld1 Iesha Bryan, RN RN nj1
[2022-08-30 12:31] VITALS: BP 109/57; TEMP 98.8; O2SAT 98
== END 2022-08-30 12:26 | disposition home or self-care (01) ==
LOC: ER 10:03
DX: M54.32 Sciatica, left side (principal); M43.16 Spondylolisthesis, lumbar region; G20 Parkinson's disease; Z96.652 Presence of left artificial knee joint; Z88.0 Allergy status to penicillin
CPT/HCPCS: 72131; 96372; 99284

== ENCOUNTER 2024-01-01 19:26 | Emergency (ER) | payer OTHER, BC ==
[2024-01-01] MEDS ORDERED: KETOROLAC 30 MG/ML INJ ONE (20:44)
[2024-01-01] MEDS ORDERED: predniSONE 20 MG TAB ONE (20:44)
--- NOTE | 2024-01-01 22:03 | RAD REPORT ---
EXAMINATION: CT PELVIS WITHOUT CONTRAST CLINICAL INDICATION: Female, 78 years old.[facility] MAIN pelvic pain , left leg pain Bed Name: 3 TECHNIQUE: CT pelvis was performed, without IV contrast, as per department protocol. Axial, sagittal and coronal reconstructions were obtained. One or more of the following dose reduction techniques were used: Automated exposure control, adjustment of the mA and/or kV according to patient size, and/ or iterative reconstruction. Unless otherwise specified, incidental findings do not require dedicated imaging follow-up. COMPARISON: CT abdomen and pelvis 08/22/2022 FINDINGS: The lack of intravenous contrast limits the sensitivity of this exam for evaluation of solid visceral organs, vascular structures, and retroperitoneum. MUSCULOSKELETAL: No acute or suspicious osseous abnormality. Moderate lower lumbar spine degenerative changes. URINARY SYSTEM: No abnormalities of the included kidneys and ureters. Urinary bladder is unremarkable . GASTROINTESTINAL TRACT: Included small bowel is normal in caliber. No wall thickening or bowel inflam matory changes. Distal colonic diverticulosis. LYMPH NODES: No lymphadenopathy. ABDOMINAL AORTA AND OTHER VESSELS: Normal caliber aorta and IVC. ADDITIONAL FINDINGS: Ovoid cystic lesion in the left hemipelvis measuring 6.0 x 5.3 cm, appears to be left adnexal origin.. IMPRESSION: No acute abnormalities of the bony pelvis. Evaluation limited by lack of IV contrast. Distal colon reticulosis. Ovoid 6.0 cm cystic lesion, appears to be of left adnexal origin. Recommendations for Benign-appearing simple adnexal cysts on CT with IV contrast and MR: (1)(2) Pre-menopause(3) (<= 50 years if LMP unknown): <=5 cm: No follow-up imaging recommended >5 cm - <=7 cm: US f/u 6-12 weeks >7 cm: Consider MR w/IVC or surgical evaluation Early post-menopause (<=5 years from LMP; > 50 years to <= 55 years if LMP unknown): <=3 cm: No follow-up imaging recommended (4) >3 cm - <=5 cm: US f/u 6-12 months (4) >5 cm - <=7 cm: US f/u promptly >7cm: Consider MR w/IVC or surgical evaluation Late post-menopause (>5 years from LMP; > 55 years if LMP unknown): <=3 cm: No follow-up imaging recommended >3 cm - <=7 cm: US f/u promptly >7 cm: Consider MR w/IVC or surgical evaluation (1)Recommendations based on the 2013 ACR White Paper for Managing Incidental Adnexal Findings on Abdo angelo and Pelvic CT and MRI: J Am Abby Radiol 2013;10:[id number] (2)Excludes normal/benign findings such as ovarian calcifications w/o associated non-calcified mass, corpus luteum cyst, previously characterized cyst and cyst with documented stability in size and appearance for >2 years (3)Includes cysts with layering hemorrhage (4)If internal hemorrhage suspected in cyst, US f/u 6-12 weeks
--- NOTE | 2024-01-01 22:33 | RAD REPORT ---
EXAMINATION: CT LUMBAR SPINE WITHOUT CONTRAST CLINICAL INDICATION: Female, 78 years old. back pain TECHNIQUE: Axial CT images were obtained through the lumbar spine in soft tissue and bone windows wit hout intravenous contrast. Coronal and Sagittal reformatted images were created from the data set. One or more of the following dose reduction techniques were used: Automated exposure control, adjustm ent of the mA and/ or kV according to patient size, and/or iterative reconstruction. Unless otherwise specified, incidental findings do not require dedicated imaging follow-up. COMPARISON: 08/30/2022 CT lumbar spine FINDINGS: For purposes of this dictation, it is assumed that there are 5 non rib-bearing lumbar type vertebrae, and the most caudal fully segmented lumbar vertebra is labeled L5. ALIGNMENT: Multilevel minimal degrees of spondylolisthesis secondary to endplate and facet are mildly . Grade 1 retrolisthesis of L3 over L4 measuring 5 mm. Levoconvex scoliosis with apex at L2. BONES: No significant soft tissue abnormalities. No aggressive osseous lesions. DISCS: Intervertebral disc space heights are maintained. LEVELS: Degrees of facet arthropathy most pronounced in the lower lumbar levels, as well as ligamentu m flavum buckling, contributes to moderate suspected central canal stenosis at L4-5, and to lesser degree L3-4. Variable degrees of neural foraminal narrowing most severe on the left at L3-4 and L2-3. No visualized abnormality within the spinal canal. SOFT TISSUE: No soft tissue abnormalities. Incidentally noted left adnexal simple appearing cystic le shellie measuring up to 5.8 cm, better characterized on CT of the pelvis of the same day. Distal colonic anastomosis. IMPRESSION: No acute lumbar spine abnormalities. Advanced spondylotic changes as above. There is concern for radiculopathy, additional evaluation MRI be helpful to further evaluate impingement of the neural structures. Incidental findings as above.
--- NOTE | 2024-01-01 23:10 | ER ---
Nurse's Notes [facility] Name: Tram Mahajan Age: 78 yrs Sex: Female : 1945 Arrival Date: 01/01/2024 Time: 19:26 Bed 3 Private MD: Diagnosis: Low back pain;Acute Left sciatica, Acute Lower Back Pain, Scoliosis chronic, Degenerative Spinal Disease Presentation: 12/31 20:01 Chief complaint: Patient states: Left sided back pain onset yesterday. Pt reports that cm10 today the pain started radiating down left leg. Coronavirus screen: Client denies travel out of the [place] in the last 14 days. Ebola Screen: Patient denies travel to an Ebola-affected area in the 21 days before illness onset. No symptoms or risks identified at this time. Initial Sepsis Screen: Does the patient meet any 2 criteria? No. Patient's initial sepsis screen is negative. Does the patient have a suspected source of infection? No. Patient's initial sepsis screen is negative. Risk Assessment: Do you want to hurt yourself or someone else? Patient reports no desire to harm self or others. Onset of symptoms was December 31, 2023. 20:01 Method Of Arrival: Wheelchair cm10 20:01 Acuity: IRMA 4 cm10 Triage Assessment: 20:02 General: Appears in no apparent distress. comfortable, Behavior is calm, cooperative. cm10 Pain: Complains of pain in left low back Pain radiates to left leg Pain currently is 10 out of 10 on a pain scale. Neuro: No deficits noted. Level of Consciousness is awake, alert, obeys commands, Oriented to person, place, time, situation, Appropriate for age. Respiratory: No deficits noted. Airway is patent Respiratory effort is even, unlabored, Respiratory pattern is regular, symmetrical. Historical: - Allergies: 20:02 PENICILLINS; cm10 - PMHx: 20:02 Parkinson's disease; cm10 - PSHx: 20:02 brain stimulator; Knee replacement; cm10 - Immunization history:: Adult Immunizations up to date. - Infectious Disease History:: Denies. - Social history:: Smoking status: Patient denies any tobacco usage or history of. - Family history:: not pertinent. Screenin:15 [facility] ED Fall Risk Assessment (Adult) History of falling in the last 3 months, br2 including since admission No falls in past 3 months (0 pts) Confusion or Disorientation No (0 pts) Intoxicated or Sedated No (0 pts) Impaired Gait Yes (1 pt) Mobility Assist Device Used No (0 pt) Altered Elimination No (0 pt) Score/Fall Risk Level 0 - 2 = Low Risk Oriented to surroundings, Maintained a safe environment, Educated pt \T\ family on fall prevention, incl call for assistance when getting out of bed. Abuse screen: Denies threats or abuse. Denies injuries from another. Nutritional screening: No deficits noted. Tuberculosis screening: No symptoms or risk factors identified. Assessment: 20:15 Reassessment: Patient and/or family updated on plan of care and expected duration. Pain br2 level reassessed. Patient is alert, oriented x 3, equal unlabored respirations, skin warm/dry/pink. General: Appears uncomfortable, slender, Behavior is calm, cooperative, quiet. Pain: Complains of pain in buttocks Pain radiates to left leg Pain currently is 10 out of 10 on a pain scale. Quality of pain is described as burning, sharp, Pain began 1 day ago. Is continuous, Alleviated by rest, Aggravated by repositioning, MOVEMENT Noted to be. Neuro: [place] Agitation-Sedation Scale (RASS): 0 - Alert and Calm Level of Consciousness is awake, alert, obeys commands, Oriented to person, place, time, situation, [employer] Libr[employer] are equal bilaterally Speech is normal, Facial symmetry appears normal. Cardiovascular: Reports None Denies chest pain, shortness of breath, Capillary refill < 3 seconds is brisk. Respiratory: Airway is patent. GI: No signs and/or symptoms were reported involving the gastrointestinal system. Abdomen is flat, non-distended. : No signs and/or symptoms were reported regarding the genitourinary system. EENT: No signs and/or symptoms were reported regarding the EENT system. Derm: No signs and/or symptoms reported regarding the dermatologic system. Musculoskeletal: No signs and/or symptoms reported regarding the musculoskeletal system. 20:30 Reassessment: PT DOESN'T WANT ANY MEDICATION THAT CAN MAKE HER DROWSY AND UNSTEADY br2 GAIT. PT HAS PARKINSONS AND IS CONCERNED ON FALLING. DR. RODRIGUES NOTIFIED. PT GIVEN PREDNISONE AND TORADOL AT THIS TIME. 22:05 Reassessment: Patient and/or family updated on plan of care and expected duration. Pain br2 level reassessed. Patient is alert, oriented x 3, equal unlabored respirations, skin warm/dry/pink. Patient denies pain at this time. Patient states feeling better. Patient states symptoms have improved. Vital Signs: 20:01 BP 127 / 61; Pulse 69; Resp 16; Temp 97.4; Pulse Ox 98% on R/A; Weight 62.6 kg; Height cm10 5 ft. 2 in. ; Pain 10/10; 20:30 BP 168 / 82; Pulse 71; Resp 18; Pulse Ox 100% ; Pain 10/10; br2 22:05 BP 141 / 71; Pulse 69; Resp 18 S; Pulse Ox 99% on R/A; Pain 0/10; br2 23:05 BP 120 / 70; Pulse 64 RA; Resp 18 S; Pulse Ox 99% on R/A; Pain 0/10; br2 20:01 Body Mass Index 25.24 (62.60 kg, 157.48 cm) cm10 20:01 Pain Scale: Adult cm10 20:30 Pain Scale: Adult br2 22:05 Pain Scale: Adult br2 23:05 Pain Scale: Adult br2 [place] Coma Score: 01/01 23:12 Eye Response: spontaneous(4). Motor Response: obeys commands(6). Verbal Response: sp4 oriented(5). Total: 15. ED Course: 12/31 19:33 Patient arrived in ED. gm2 20:02 Triage completed. cm10 20:03 Arm band placed on right wrist. Patient placed in waiting room. cm10 20:07 Jose Daniel Rodrigues MD is Attending Physician. sp4 20:10 Simon Baird, RN is Primary Nurse. bm8 20:30 Patient has correct armband on for positive identification. Bed in low position. Call br2 light in reach. Side rails up X 1. Provided Education on: PLAN OF CARE. 20:38 Primary Nurse role handed off by Simon Baird, RN br2 20:38 Manju Holbrook RN is Primary Nurse. br2 21:32 CT Lumbar Spine Wo Con In Process Unspecified. EDMS 21:32 CT Pelvis wo Cont In Process Unspecified. EDMS 23:09 Travon Gomez MD is Referral Physician. sp4 23:33 No provider procedures requiring assistance completed. Patient did not have IV access br2 during this emergency room visit. Administered Medications: 20:54 Not Given (HOLD FOR NOW ): morphine4 mg IM once br2 20:54 Drug: Ketorolac IM 30 mg IM once Route: IM; Site: left gluteus; br2 22:07 Follow up: Response: No adverse reaction; Pain is decreased br2 20:54 Not Given (HOLD FOR NOWw): ondansetron4 mg PO once br2 20:54 Not Given (HOLD FOR NOWw): [id number] mg PO once br2 20:55 Drug: predniSONE PO 60 mg PO once Route: PO; br2 22:07 Follow up: Response: No adverse reaction; Pain is decreased br2 Medication: 23:36 VIS not applicable for this client. br2 Outcome: 23:10 Discharge ordered by . sp4 23:30 Discharged to home via wheelchair, with friend, br2 23:30 Condition: improved 23:30 Discharge instructions given to patient, friend, Instructed on discharge instructions, follow up and referral plans. medication usage, Demonstrated understanding of instructions, follow-up care, medications, Prescriptions given X 1, 2, 3, 23:36 Patient left the ED. br2 Signatures: Dispatcher [employer] EDMS Jose Daniel Rodrigues MD MD sp4 Colleen Laboy, RN RN cm10 Yolande Combs gm2 Simon Baird RN RN bm8 Manju Holbrook RN RN br2
--- NOTE | 2024-01-01 23:10 | EDPHYS ---
Physician Documentation [facility] Name: Tram Mahajan Age: 78 yrs Sex: Female : 1945 Arrival Date: 01/01/2024 Time: 19: Bed 3 Private MD: ED Physician Jose Daniel Rodrigues HPI: 12/31 20:08 This 78 yrs old Female presents to ER via Wheelchair with complaints of Pain. sp4 01/01 23:12 78-year-old female presents with a complaint of discomfort for starting today left sp4 lower back radiating down the left leg. Denied any back or leg injury. Patient states she has history of sciatica. Historical: - Allergies: 12/31 20:02 PENICILLINS; cm10 - PMHx: 20:02 Parkinson's disease; cm10 - PSHx: 20:02 brain stimulator; Knee replacement; cm10 - Immunization history:: Adult Immunizations up to date. - Infectious Disease History:: Denies. - Social history:: Smoking status: Patient denies any tobacco usage or history of. - Family history:: not pertinent. ROS: 01/01 23:12 Constitutional: Negative for fever, chills, and weight loss, positive today for left sp4 lower back pain positive for leg pain All other systems are negative, Exam: 23:12 Constitutional: This is a well developed, well nourished patient who is awake, alert, sp4 and in no acute distress. Patient is elderly frail female, no acute distress, positive for signs of physical deconditioning Head/Face: Normocephalic, atraumatic. Eyes: Pupils equal round and reactive to light, extra-ocular motions intact. Lids and lashes normal. Conjunctiva and sclera are not injected. Cornea within normal limits. Periorbital areas with no swelling, redness, or edema. ENT: Nares patent. No nasal discharge, no septal abnormalities noted. Tympanic membranes are normal and external auditory canals are clear. Oropharynx with no redness, swelling, or masses, exudates, or evidence of obstruction, uvula midline. Mucous membranes moist. Neck: Trachea midline, no thyromegaly or masses palpated, and no cervical lymphadenopathy. Supple, full range of motion without nuchal rigidity, or vertebral point tenderness. Chest/axilla: Normal chest wall appearance and motion. Nontender with no deformity. No lesions are appreciated. Cardiovascular: Regular rate and rhythm with a normal S1 and S2. No gallops, murmurs, or rubs. Normal PMI, no JVD. No pulse deficits. Respiratory: Lungs have equal breath sounds bilaterally, clear to auscultation and percussion. No rales, rhonchi or wheezes noted. No increased work of breathing, no retractions or nasal flaring. Abdomen/GI: Soft, with normal bowel sounds. No distension or tympany. No guarding or rebound. No evidence of tenderness throughout. Back: No spinal tenderness. No costovertebral tenderness. Skin: Warm, dry with normal turgor. Normal color with no rashes, no lesions, and no evidence of cellulitis. MS/ Extremity: Pulses equal, no cyanosis. Neurovascular intact. Full, normal range of motion. Neuro: Awake and alert, GCS 15, oriented to person, place, time, and situation. Cranial nerves II-XII grossly intact. Motor strength 5/5 in all extremities. Sensory grossly intact. Psych: Awake, alert, with orientation to person, place and time. Behavior, mood, and affect are within normal limits Vital Signs: 12/31 20:01 BP 127 / 61; Pulse 69; Resp 16; Temp 97.4; Pulse Ox 98% on R/A; Weight 62.6 kg; Height cm10 5 ft. 2 in. ; Pain 10/10; 20:30 BP 168 / 82; Pulse 71; Resp 18; Pulse Ox 100% ; Pain 10/10; br2 22:05 BP 141 / 71; Pulse 69; Resp 18 S; Pulse Ox 99% on R/A; Pain 0/10; br2 23:05 BP 120 / 70; Pulse 64 RA; Resp 18 S; Pulse Ox 99% on R/A; Pain 0/10; br2 20:01 Body Mass Index 25.24 (62.60 kg, 157.48 cm) cm10 20:01 Pain Scale: Adult cm10 20:30 Pain Scale: Adult br2 22:05 Pain Scale: Adult br2 23:05 Pain Scale: Adult br2 [place] Coma Score: 01/01 23:12 Eye Response: spontaneous(4). Motor Response: obeys commands(6). Verbal Response: sp4 oriented(5). Total: 15. MDM: 12/31 20:22 Patient medically screened. sp4 23:07 ED course: COMPARISON: 08/30/2022 CT lumbar spine FINDINGS: For purposes of this sp4 dictation, it is assumed that there are 5 non rib-bearing lumbar type vertebrae, and the most caudal fully segmented lumbar vertebra is labeled L5. ALIGNMENT: Multilevel minimal degrees of spondylolisthesis secondary to endplate and facet are mildly. Grade 1 retrolisthesis of L3 over L4 measuring 5 mm. Levoconvex scoliosis with apex at L2. BONES: No significant soft tissue abnormalities. No aggressive osseous lesions. DISCS: Intervertebral disc space heights are maintained. LEVELS: Degrees of facet arthropathy most pronounced in the lower lumbar levels, as well as ligamentum flavum buckling, contributes to moderate suspected central canal stenosis at L4-5, and to lesser degree L3-4. Variable degrees of neural foraminal narrowing most severe on the left at L3-4 and L2- 3. No visualized abnormality within the spinal canal. SOFT TISSUE: No soft tissue abnormalities. Incidentally noted left adnexal simple appearing cystic lesion measuring up to 5.8 cm, better characterized on CT of the pelvis of the same day. Distal colonic anastomosis. IMPRESSION: No acute lumbar spine abnormalities. Advanced spondylotic changes as above. There is concern for radiculopathy, additional evaluation MRI be helpful to further evaluate impingement of the neural structures. Incidental findings as above. . ED course: EXAMINATION: CT PELVIS WITHOUT CONTRAST CLINICAL INDICATION: Female, 78 years old.[facility] MAIN pelvic pain , left leg pain Bed Name: 3 TECHNIQUE: CT pelvis was performed, without IV contrast, as per department protocol. Axial, sagittal and coronal reconstructions were obtained. One or more of the following dose reduction techniques were used: Automated exposure control, adjustment of the mA and/or kV according to patient size, and/or iterative reconstruction. Unless otherwise specified, incidental findings do not require dedicated imaging follow-up. COMPARISON: CT abdomen and pelvis 08/22/2022 FINDINGS: The lack of intravenous contrast limits the sensitivity of this exam for evaluation of solid visceral organs, vascular structures, and retroperitoneum. MUSCULOSKELETAL: No acute or suspicious osseous abnormality. Moderate lower lumbar spine degenerative changes. URINARYSYSTEM: No abnormalities of the included kidneys and ureters. Urinary bladder is unremarkable. GASTROINTESTINAL TRACT: Included small bowel is normal in caliber. No wall thickening or bowel inflammatory changes. Distal colonic diverticulosis. LYMPH NODES: No lymphadenopathy. ABDOMINAL AORTA AND OTHER VESSELS: Normal caliber aorta and IVC. ADDITIONAL FINDINGS: Ovoid cystic lesion in the left hemipelvis measuring 6.0 x 5.3 cm, appears to be left adnexal origin.. IMPRESSION: No acute abnormalities of the bony pelvis. Evaluation limited by lack of IV contrast. Distal colon reticulosis. Ovoid 6.0 cm cystic lesion, appears to be of left adnexal origin. Recommendations for Benign-appearing simple adnexal cysts on CT with IV contrast and MR: . 01/01 23:19 Differential Diagnosis altered mental status, sepsis, flu, Sciatica . Data reviewed: sp4 vital signs, nurses notes, old medical records, radiologic studies. Consideration of Admission/Observation Escalation of care including admission/observation considered. ED course: Has incidental finding of the left adnexal cyst. Recommend follow-up with PMD for ultrasound. 12/31 20:31 Order name: CT Lumbar Spine Wo Con; Complete Time: 22:58 sp4 12/31 20:32 Order name: CT Pelvis wo Cont; Complete Time: 22:07 sp4 Administered Medications: 12/31 20:54 Not Given (HOLD FOR NOW ): morphine4 mg IM once br2 20:54 Drug: Ketorolac IM 30 mg IM once Route: IM; Site: left gluteus; br2 22:07 Follow up: Response: No adverse reaction; Pain is decreased br2 20:54 Not Given (HOLD FOR NOWw): ondansetron4 mg PO once br2 20:54 Not Given (HOLD FOR NOWw): [id number] mg PO once br2 20:55 Drug: predniSONE PO 60 mg PO once Route: PO; br2 22:07 Follow up: Response: No adverse reaction; Pain is decreased br2 Disposition Summary: 01/01/24 23:10 Discharge Ordered Problem: new sp4 Symptoms: have improved sp4 Condition: Stable sp4 Diagnosis - Low back pain sp4 - Acute Left sciatica, Acute Lower Back Pain, Scoliosis chronic, Degenerative sp4 Spinal Disease Followup: sp4 - With: Travon Gomez MD - When: 7 - 10 days - Reason: Recheck today's complaints Discharge Instructions: - Discharge Summary Sheet sp4 - Sciatica, [id number] sp4 Forms: - Patient Portal Instructions sp4 Prescriptions: - Tramadol 50 mg Oral tablet - take 1 tablet ORAL route every 8 hours as needed; 25 tablet; Refills: 0, sp4 Product Selection Permitted - Prednisone 20 mg Oral Tablet - take 2 tablets ORAL route once daily for 5 days; 10 tablet; Refills: 0, Product sp4 Selection Permitted - methocarbamol 750 mg Oral tablet - take 1 tablet ORAL route every 8 hours for 21 days PRN back pain; 30 tablet; sp4 Refills: 0, Product Selection Permitted Signatures: Dispatcher [employer] Jose Daniel Little MD MD sp4 Colleen Laboy RN RN cm10 Manju Holbrook RN RN br2 Corrections: (The following items were deleted from the chart) 20:33 20:33 Pelvis Wo Cont+[id number].RAD.BRZ ordered. [facility] JEFFYAZ
[2024-01-02 00:18] VITALS: TEMP 97.4
[2024-01-02 00:19] VITALS: O2SAT 99
[2024-01-02 00:20] VITALS: BP 120/70
== END 2024-01-01 23:36 | disposition home or self-care (01) ==
LOC: ER 19:26
DX: M54.50 Low back pain, unspecified (principal); M54.32 Sciatica, left side; M41.9 Scoliosis, unspecified; M51.36 Other intervertebral disc degeneration, lumbar region
CPT/HCPCS: 72131; 72192; 96372; 99284; J7512

== ENCOUNTER 2024-01-05 07:29 | Inpatient (IN) | payer OTHER, BC ==
[2024-01-05] MEDS ORDERED: MORPHINE 2 MG/ML SYR ONE ×2 (07:44→08:42)
[2024-01-05] MEDS ORDERED: ONDANSETRON 4 MG/2 ML VIAL ONE (07:44)
[2024-01-05 08:15] LABS: Absolute Monocytes 0.5 K/uL (0.1-1.3); Absolute Neutrophil 5.1 K/uL (1.8-8.0); Basophils % 0.4 % (0-1.3); Eosinophils % 0.1 % (0-4.4); Hematocrit 40.6 % (36.0-45.0); Hemoglobin 13.5 g/dL (12.0-15.0); Lymphocytes % 26.7 % (15.3-44.8); MCH 32.9 pg (27.0-35.0); MCHC 33.2 g/dL (32.0-36.0); MCV 99.2 fL (80-100); MPV 7.7 fL (7.6-11.3); Monocytes % 6.5 % (3.3-12.3); Neutrophils % 66.3 % (41.7-73.7); Platelets 270 thou/uL (152-406); Red Cell Distribution Width 13.1 % (12.1-15.2)
[2024-01-05 08:33] LABS: Anion Gap 7.7 mEq/L (5.0-15.0); Potassium 3.7 mEq/L (3.5-5.1); Troponin High Sensitivity 5.9 pg/mL (<58.9)
--- NOTE | 2024-01-05 09:11 | RAD REPORT ---
Pelvis Complete CLINICAL INDICATION: Female [address] WITH LEFT ADNEXAL MASS;Pain TECHNIQUE: Real-time ultrasonography of the pelvis was performed. Color and spectral Doppler evaluati on of the ovaries was performed. [id number]. COMPARISON: CT 01/01/2024 FINDINGS: UTERUS AND CERVIX: The uterus measures 5.3 x 2.4 x 3.5 cm (cervix to fundus x AP x transverse). The u terus is normal. No masses seen The endometrium is normal,0.2 cm in thickness. Trace endometrial fluid. RIGHT OVARY: Normal The right ovary measures 1.1 x 1.1 x 1.1 cm. Normal color and spectral Doppler ev aluation of the right ovary.. LEFT OVARY: Enlarged. The left ovary measures 6.2 x 5.3 x 5.2 cm. Normal Color and spectral Doppler evaluation of the left ovary.. 6.2 x 5.3 cm left ovarian simple appearing cyst. FREE FLUID: No free fluid. IMPRESSION: Bilateral ovarian blood flow. Trace endometrial fluid but no endometrial thickening. Simple appearing left adnexal cystic lesion. As the patient is postmenopausal, the patient should be referred to gynecology for further management. It may represent a serous cystadenoma.
--- NOTE | 2024-01-05 10:00 | RAD REPORT ---
EXAMINATION: Pelvis W/Cont CLINICAL INDICATION: Female, 78 years old. IV contrast only - had CT on Wed suggesting mass on left TECHNIQUE: CT pelvis was performed, with IV contrast, as per department protocol. Axial, sagittal and coronal reconstructions were obtained. One or more of the following dose reduction techniques were used: Automated exposure control, adjustment of the mA and/or kV according to patient size, and/or it erative reconstruction. Unless otherwise specified, incidental findings do not require dedicated imaging follow-up. [id number]. IV CONTRAST: Yes COMPARISON: 01/01/2024 FINDINGS: GASTROINTESTINAL TRACT: No acute findings. Normal appendix. LYMPH NODES: No lymphadenopathy. ABDOMINAL AORTA AND OTHER VESSELS: Normal caliber aorta and IVC. Atherosclerosis. MUSCULOSKELETAL: Degenerative changes are present in the lower spine with evidence of at least mild n eural foraminal narrowing on the left at L4-5 and L5-S1. ADDITIONAL FINDINGS: Left adnexal cystic lesion measuring 6 cm with small dependent calcification. IMPRESSION: 1. No acute findings within the pelvis to explain reported left-sided radiculopathy. Could consider n onemergent lumbar spine MRI if there is concern for radiculopathy. 2. 6 cm left adnexal cystic lesion. Gynecology referral is recommended. Note that this lesion is unli gaby to explain a radiculopathy.
--- NOTE | 2024-01-05 11:23 | EDPHYS ---
Physician Documentation [facility] Name: Tram Mahajan Age: 78 yrs Sex: Female : 1945 Arrival Date: 01/05/2024 Time: 07:29 Bed 16 Private MD: ED Physician Jaden Short HPI: 01/04 07:44 This 78 yrs old Female presents to ER via Unassigned with complaints of Fall Injury, bo1 Back Pain. 07:44 Onset: The symptoms/episode began/occurred Since Saturday, weak and left sided leg bo1 pain from sciatic dx. Falls every day. EMS called today, early AM for "unable to walk or support own weight." No fall last night. C/O is falls and LBP. [facility] transport this AM with 4 doses of Fentanyl, total 100mcg. 710 pain. No other SXS.. The patient has been recently seen at the [facility] Emergency Department, last week, for similar complaints CT scan was performed, Dr Jose Daniel Orozco. Historical: - Allergies: 07:34 PENICILLINS; ss - PMHx: 07:34 Parkinson's disease; ss - PSHx: 07:34 brain stimulator; Knee replacement; ss - Immunization history:: Adult Immunizations unknown. - Infectious Disease History:: Denies. - Social history:: Smoking status: Patient denies any tobacco usage or history of. ROS: 07:50 Constitutional: Negative for fever, chills, and weight loss, bo1 07:50 Cardiovascular: Negative for chest pain, palpitations, 07:50 Respiratory: Negative for cough, shortness of breath, 07:50 Abdomen/GI: Negative for abdominal pain, nausea, vomiting, and diarrhea, 07:50 Back: Positive for pain at rest, of the lumbar area, 07:50 MS/extremity: Negative for Left leg pain, radiation from the LB area, 07:50 Skin: Negative for rash, 07:50 Neuro: Negative for altered mental status, headache, 07:50 All other systems are negative, Exam: 07:55 Constitutional: This is a well developed, well nourished patient who is awake, alert, bo1 and in no acute distress. 07:55 Head/face: Exam is negative for rash, swelling, tenderness, 07:55 Neck: External neck: no acute changes, 07:55 Cardiovascular: Rate: normal, Rhythm: regular, Pulses: no pulse deficits are appreciated, 07:55 Respiratory: the patient does not display signs of respiratory distress, Breath sounds: are clear throughout, 07:55 Abdomen/GI: Inspection: abdomen appears normal, Bowel sounds: normal, 07:55 Back: pain, that is mild, of the lumbar area, 07:55 Musculoskeletal/extremity: Extremities: no acute changes, 07:55 Musculoskeletal/extremity: Knee scar from knee replacement surgery. 07:55 Skin: no rash present. 07:55 Neuro: Deep tendon reflexes are 2+ (normal) in the right patellar, right Achilles, left patellar and left Achilles, 08:07 ECG was reviewed by the Attending Physician. EKG is unreadable due to extreme bo1 interference from the brain stimulator present in the pt's left upper chest. Regular rate QRS peaks. Vital Signs: 07:35 BP 159 / 72; Pulse 63; Resp 16; Temp 97; Pulse Ox 97% ; ko1 08:52 BP 157 / 71; Pulse 68; Resp 16; Pulse Ox 98% ; ko1 10:20 BP 154 / 74; Pulse 72; Resp 18; Pulse Ox 97% ; ko1 13:00 BP 139 / 59; Pulse 70; Resp 17; Pulse Ox 100% ; ko1 MDM: 08:00 Historians other than the Patient: MD from the Sat visit - Dr Mery Orozco Findings and plan bo1 for family to provide supportive care.. ED course: Reviewed prior CT imaging studies from 12/31. 08:02 Patient medically screened. bo1 08:37 ED course: Visited pt, some pain relief with the initial dose of MS. Ultrasound to be bo1 done. Family is here, given information and plan. Son, daughter in law and friend providing care since the falls. No AMS or neuro changes per family.. 08:39 Data reviewed: vital signs. bo1 11:28 Consideration of Admission/Observation Patient was admitted/placed on observation. bo1 Management of patient was discussed with the following: Hospitalist: . ED course: Discussion for prevention of falls, pt has been falling every day from weakness to the left leg (giving out) and pain to the left hip since Sat. Pt also has a left adnexal mass with US and CT w contrast done. F/U with [employer] PROFESSOR needed (though seen 2 weeks ago, not aware of the CT result.). 01/04 07:34 Order name: Basic Metabolic Panel; Complete Time: 08:48 01/04 07:34 Order name: CBC with Diff; Complete Time: 08:26 01/04 07:34 Order name: Troponin HS; Complete Time: 08:48 01/04 07:34 Order name: Urinalysis w/ reflexes 01/04 08:00 Order name: US Pelvis Complete; Complete Time: 09:39 01/04 08:51 Order name: CT Pelvis w cont; Complete Time: 10:02 01/04 07:34 Order name: EKG; Complete Time: 07:34 01/04 07:34 Order name: Cardiac monitoring; Complete Time: 07:42 01/04 07:34 Order name: EKG - Nurse/Tech; Complete Time: 08:07 01/04 07:34 Order name: IV Saline Lock; Complete Time: 07:42 01/04 07:34 Order name: Labs collected and sent; Complete Time: 08:03 01/04 07:34 Order name: O2 Per Protocol; Complete Time: 07:42 01/04 07:34 Order name: O2 Sat Monitoring; Complete Time: 07:42 bo Administered Medications: 07:45 Drug: Ondansetron IVP 2 mg IVP once; over 2 minutes Route: IVP; Site: left antecubital; ko1 08:00 Follow up: Response: No adverse reaction ko1 07:50 Drug: morphine IVP or IV 2 mg IVP once over 4 mins Route: IVP; Infused Over: 4 mins; ko1 Site: left antecubital; 08:05 Follow up: Response: No adverse reaction; Pain is decreased ko1 08:46 Drug: morphine IVP or IV 2 mg IVP once over 4 mins Route: IVP; Infused Over: 4 mins; ko1 Site: left antecubital; 09:01 Follow up: Response: No adverse reaction ko1 Disposition Summary: 01/05/24 11:23 Hospitalization Ordered Notes: Hospitalization Status: Observation bo1 Provider: Moe Delaney boRandal Location: Telemetry/MedSurg (observation) bo1 Condition: Stable bo1 Problem: an acute exacerbation bo1 Symptoms: are unchanged bo1 Bed/Room Type: Standard bo1 Room Assignment: 406(01/05/24 12:04) eb Diagnosis - Weakness bo1 - Low back pain bo1 - Parkinson's disease bo1 Forms: - Medication Reconciliation Form bo1 - SBAR form bo1 - Leadership Thank You Letter bo1 Signatures: Dispatcher [employer] Sylvia Eastman RN RN Missy Martinez Kathy, RN RN ko1 Jaden Short MD MD bo1 Corrections: (The following items were deleted from the chart) 07:36 07:34 PSHx: Knee replacement, right; [facility] 12:04 11:23 bo1 eb
--- NOTE | 2024-01-05 11:23 | ER ---
Nurse's Notes [facility] Name: Tram Mahajan Age: 78 yrs Sex: Female : 1945 Arrival Date: 01/05/2024 Time: 07:29 Bed 16 Private MD: Diagnosis: Weakness;Low back pain;Parkinson's disease Presentation: 01/04 07:35 Chief complaint: EMS states: family called due to patient having multiple falls since ko1 Saturday, she has been having sciatic pain which makes her left leg give out and she falls, today she is unable to bear weight at all. Coronavirus screen: At this time, the client does not indicate any symptoms associated with coronavirus-19. Ebola Screen: No symptoms or risks identified at this time. Initial Sepsis Screen: Does the patient meet any 2 criteria? No. Patient's initial sepsis screen is negative. Does the patient have a suspected source of infection? No. Patient's initial sepsis screen is negative. Risk Assessment: Do you want to hurt yourself or someone else? Patient reports no desire to harm self or others. Onset of symptoms was January 05, 2024. Care prior to arrival: Medication(s) given: fentanyl 100mcg IV, in 25mcg increments IV initiated. 22 GA, in the left antecubital area, Glucose check: 74. 07:35 Method Of Arrival: EMS: [facility] ko1 07:35 Acuity: IRMA 3 ko1 Triage Assessment: 07:35 General: Appears in no apparent distress. Behavior is calm, cooperative, appropriate ko1 for age. Pain: Complains of pain in left patellar and right patellar and lumbar area. Historical: - Allergies: 07:34 PENICILLINS; ss - PMHx: 07:34 Parkinson's disease; ss - PSHx: 07:34 brain stimulator; Knee replacement; ss - Immunization history:: Adult Immunizations unknown. - Infectious Disease History:: Denies. - Social history:: Smoking status: Patient denies any tobacco usage or history of. Screenin:35 [facility] ED Fall Risk Assessment (Adult) History of falling in the last 3 months, ko1 including since admission Yes- fall prone (multiple falls) (3 pts) Confusion or Disorientation No (0 pts) Intoxicated or Sedated No (0 pts) Impaired Gait Yes (1 pt) Mobility Assist Device Used Yes (1 pt) Altered Elimination Yes (1 pt) Score/Fall Risk Level 3 or more points = High Risk Oriented to surroundings, Maintained a safe environment, Educated pt \T\ family on fall prevention, incl call for assistance when getting out of bed, Assessed \T\ reinforced patient's understanding of fall precautions, Provided non-skid footwear, Hourly rounding (assess needs \T\ fall precautionary measures) done, Used ambulatory aids as needed (educated on \T\ assisted with), Used gait belt as appropriate Implemented a Fall Risk Plan of Care, Apply high fall risk patient identification: yellow non skid footwear/ fall signage, Remained w/in arm's length of patient and in sight while toileting, Offered frequent toileting (1:1 observation), Remained with patient while ambulating, Utilized family, sitter, or virtual metal solderer as indicated. Abuse screen: Denies threats or abuse. Denies injuries from another. Nutritional screening: No deficits noted. Tuberculosis screening: No symptoms or risk factors identified. Assessment: 07:35 Neuro: No deficits noted. Cardiovascular: No deficits noted. Respiratory: No deficits ko1 noted. GI: No deficits noted. : No deficits noted. EENT: No deficits noted. Derm: No deficits noted. Musculoskeletal: Reports pain in lumbar area. 08:00 Reassessment: unable to obtain adequate ekg due to brain stimulator interference. MD [place]1 aware. Vital Signs: 07:35 BP 159 / 72; Pulse 63; Resp 16; Temp 97; Pulse Ox 97% ; ko1 08:52 BP 157 / 71; Pulse 68; Resp 16; Pulse Ox 98% ; ko1 10:20 BP 154 / 74; Pulse 72; Resp 18; Pulse Ox 97% ; ko1 13:00 BP 139 / 59; Pulse 70; Resp 17; Pulse Ox 100% ; ko1 ED Course: 07:31 Patient arrived in ED. ss 07:31 Jaden Short MD is Attending Physician. bo1 07:35 ED physician to see patient. ko1 07:35 Maintain EMS IV. Dressing intact. Good blood return noted. Site clean \T\ dry. Gauge \T\ ko 1 site: 22g left AC. Flushed with 10 mL NS. 07:35 Arm band placed on left wrist. Patient placed in an exam room, on a stretcher, on ko1 child monitor, on pulse oximetry, Patient notified of wait time. 07:35 Patient has correct armband on for positive identification. Allergy band placed. Fall ko1 risk band placed. Placed in gown. Bed in low position. Call light in reach. Side rails up X2. Provided Education on: labs, meds. Client placed on continuous cardiac and pulse oximetry monitoring. NIBP monitoring applied. hospital monitor on. Door closed. Noise minimized. Lights dimmed. Warm blanket given. Pillow given. 07:40 Tatiana Harris, RN is Primary Nurse. ko1 08:00 Pt visited by son, Friend. ko1 08:00 No provider procedures requiring assistance completed. Initial lab(s) drawn, by md, ko1 sent to lab. EKG done, by ED staff, reviewed by Jaden Short MD. 08:03 Basic Metabolic Panel Sent. ko1 08:03 CBC with Diff Sent. ko1 08:03 Troponin HS Sent. ko1 08:10 Triage completed. ko1 08:30 ED physician to see patient. ko1 08:50 US Pelvis Complete In Process Unspecified. EDMS 08:50 Patient requests rest room assistance. ko1 08:50 Turned to left side. Assisted with bedpan. ko1 09:40 CT Pelvis w cont In Process Unspecified. EDMS 09:48 Patient moved back from CT. ko1 09:53 ED physician to see patient. ko1 10:56 Nurse Practitioner and/or Physician Lay Out Carpenter to see patient. ko1 11:22 Moe Delaney MD is Hospitalizing Provider. bo1 13:00 Patient admitted, IV remains in place. ko1 Administered Medications: 07:45 Drug: Ondansetron IVP 2 mg IVP once; over 2 minutes Route: IVP; Site: left antecubital; ko1 08:00 Follow up: Response: No adverse reaction ko1 07:50 Drug: morphine IVP or IV 2 mg IVP once over 4 mins Route: IVP; Infused Over: 4 mins; ko1 Site: left antecubital; 08:05 Follow up: Response: No adverse reaction; Pain is decreased ko1 08:46 Drug: morphine IVP or IV 2 mg IVP once over 4 mins Route: IVP; Infused Over: 4 mins; ko1 Site: left antecubital; 09:01 Follow up: Response: No adverse reaction ko1 Medication: 07:35 VIS not applicable for this client. ko1 Outcome: 11:23 Decision to Hospitalize by Provider. bo1 13:00 Admitted to Med/surg accompanied by tech, via stretcher, room 406, with chart, ko1 13:00 Condition: stable 13:00 Instructed on the need for admit, 13:14 Patient left the ED. ko1 Signatures: Dispatcher [employer] EDMS Sylvia Chairez RN RN ss Tatiana Harris RN RN ko1 Jaden Short MD MD bo1 Corrections: (The following items were deleted from the chart) 07:36 07:34 PSHx: Knee replacement, right; [facility]
--- NOTE | 2024-01-05 12:05 | P.HP ---
Certification for Inpatient Patient admitted to: Observation With expected LOS: <2 Midnights Patient will require the following post-hospital care: None Practitioner: I am a practitioner with admitting privileges, knowledge of patient current condition, hospital course, and medical plan of care. Services: Services provided to patient in accordance with Admission requirements found in Title 42 Section 412.3 of the Code of Federal Regulations Patient History Date of Service: 01/05/24 Reason for admission: Multiple Falls, Back pain History of Present Illness: 78-year-old female with history of Parkinson's presents emergency room with chief complaint of multiple falls, low back/left leg pain. She reports has been having severe low back pain radiating to her left leg since 12/31. This is similar to an episode she had about a year ago. She was seen in the emergency department on the and prescribed steroids, pain medications and has not had any improvement. She is and typically lives alone but has been having help from friends and family since she is having these issues. Since 12/31 she is fallen at least once daily she is using her walker, her left leg gives out on her when she tries to ambulate. She was evaluated in the emergency department CT lumbar spine was performed on 12/31 showed advanced spondylitic changes. There is a known adnexal cyst will require follow-up with gynecology. Patient will be admitted under observation for multiple falls, weakness, back pain. Unable to get MRI due to deep brain stimulator. - Past Medical/Surgical History -: Parkinson's -: Right knee replacement -: Brain stimulator placement Psychosocial/ Personal History: She is and typically lives alone - Family History Family History: Reviewed- Non-Contributory - Social History Alcohol use: No CD- Drugs: No Caffeine use: Yes Place of Residence: Home Review of Systems 10-point ROS is otherwise unremarkable General: Weakness Musculoskeletal: Back Pain Physical Examination - Physical Exam General: Alert, In no apparent distress, Oriented x3 HEENT: Atraumatic, PERRLA, EOMI Neck: Supple, 2+ carotid pulse no bruit, No LAD Respiratory: Clear to auscultation bilaterally, Normal air movement Cardiovascular: Regular rate/rhythm, Normal S1 S2 Gastrointestinal: Normal bowel sounds, No tenderness Musculoskeletal: No tenderness Integumentary: No rashes Neurological: Normal gait, Normal speech, Normal tone, Normal affect, Abnormal strength (4/5 strength to bilateral lower extremities, limited by back pain) Lymphatics: No axilla or inguinal lymphadenopathy - Studies Laboratory Data (last 24 hrs) 01/05/24 01/05/24 08:00 08:00 WBC 7.60 Hgb 13.5 Hct 40.6 Plt Count 270 Sodium 140 Potassium 3.7 BUN 21 H Creatinine 0.75 Glucose 92 Assessment and Plan - Plan Assessment: Multiple falls Back pain/radiculopathy with advanced spondylitic changes Parkinson's Adnexal mass Plan: Multiple falls Back pain/radiculopathy with advanced spondylitic changes Typically lives alone does not use assistive devices for walking Has been staying with family/friends and using a walker the past few days Has been having falls daily or more since 12/31 as her left leg gives out on her when attempting to ambulate even with a walker CT lumbar spine showed advanced spondylitic changes unable to obtain MRI given deep brain stimulator Denies urinary or bowel incontinence that is new, saddle paresthesia, no midline back tenderness, sensation intact PT consultation, multimodal pain management Parkinson's Continue carbidopa/levodopa Adnexal mass Follow-up outpatient with gynecology DVT PPX: Lovenox Code status:Full Discharge Plan: Home Plan to discharge in: 24 Hours - Advance Directives Does patient have a Living Will: No Does patient have a Durable POA for Healthcare: No - Code Status/Comfort Care Code Status Assessed: Yes (Full code) Critical Care: No Time Spent Managing Pts Care (In Minutes): 58
[2024-01-05] MEDS: CARBIDOPA/LEVODOPA 25/100 TAB PO SCH (15:02)
[2024-01-05] MEDS ORDERED: ACETAMINOPHEN 325 MG TABLET PO PRN (15:02)
[2024-01-05] MEDS ORDERED: ONDANSETRON 4 MG/2 ML VIAL IV PRN (15:02)
[2024-01-05] MEDS: HYDROCODONE/APAP 5/325 MG TAB PO PRN (16:01)
[2024-01-06 06:02] LABS: Anion Gap 6.8 mEq/L (5.0-15.0); Potassium 3.8 mEq/L (3.5-5.1)
[2024-01-06 06:04] LABS: Absolute Eosinophils 0.2 K/uL (0-0.5); Absolute Lymphocytes (CBC) 3.1 K/uL (0.7-4.9); Absolute Monocytes 0.4 K/uL (0.1-1.3); Absolute Neutrophil 3.1 K/uL (1.8-8.0); Basophils % 0.6 % (0-1.3); Eosinophils % 2.8 % (0-4.4); Hematocrit 41.7 % (36.0-45.0); Hemoglobin 13.5 g/dL (12.0-15.0); Lymphocytes % 45.3 % (15.3-44.8); MCH 32.2 pg (27.0-35.0); MCHC 32.5 g/dL (32.0-36.0); MCV 99.2 fL (80-100); MPV 8.1 fL (7.6-11.3); Neutrophils % 45.3 % (41.7-73.7); Platelets 254 thou/uL (152-406); RBC Red Blood Cell Count 4.21 M/uL (3.86-4.86); Red Cell Distribution Width 13.4 % (12.1-15.2)
[2024-01-06] MEDS ORDERED: ALPRAZOLAM 0.5 MG TABLET PO PRN (08:57)
[2024-01-06] MEDS: RIVASTIGMINE 9.5 MG/24 HR PATCH TD SCH (09:00)
[2024-01-06] MEDS: ENOXAPARIN 40 MG/0.4 ML SQ SCH (09:03)
[2024-01-06] MEDS: LIDOCAINE 4% PATCH TOP SCH (09:03)
[2024-01-06] MEDS: DOCUSATE NA 100 MG CAP PO SCH (09:04)
[2024-01-06] MEDS: GABAPENTIN 100 MG CAP PO SCH (13:36)
[2024-01-06] MEDS: HYDROCODONE/APAP 7.5/325 MG TAB PO PRN (13:39)
[2024-01-06 13:49] VITALS: BMI 25.9
--- NOTE | 2024-01-06 14:10 | P.PN ---
Date of Service: 01/06/24 Subjective: Still having low back pain/gluteal pain radiating down leg Rated pain 8 out of 10 this morning Some improvement with medications Awaiting PT evaluation ROS: 10 point ROS as noted above, otherwise negative Physical exam GEN: Alert, oriented, NAD HEENT: Normal conjunctiva, sclera anicteric CV: Regular rate and rhythm, no edema Pulm: Nonlabored respirations on room air ABD: Soft, nontender, nondistended MSK: No joint tenderness Integumentary: No rashes Neuro: Normal speech, normal affect, strength 4/5 lower extremities Vitals reviewed Assessment: Multiple falls Back pain/radiculopathy with advanced spondylitic changes Parkinson's Simple appearing left adnexal cystic lesion 6.2 x 5.3 cm Plan: Multiple falls Back pain/radiculopathy with advanced spondylitic changes Typically lives alone does not use assistive devices for walking Has been staying with family/friends and using a walker the past few days Has been having falls daily or more since 12/31 as her left leg gives out on her when attempting to ambulate even with a walker CT lumbar spine showed advanced spondylitic changes unable to obtain MRI given deep brain stimulator Denies urinary or bowel incontinence that is new, saddle paresthesia, no midline back tenderness, sensation intact PT consultation, multimodal pain management PT to evaluate today to determine further needs Started on norco 7.5, lidoderm patch, gabapentin 100mg PO TID and PRN morphine IV with some improvement in symptoms Parkinson's Continue carbidopa/levodopa Simple appearing left adnexal cystic lesion 6.2 x 5.3 cm Given that patient is postmenopausal recommend follow-up with gynecology outpatient for further evaluation DVT PPX: Lovenox Code status:Full Discharge Plan: Home Plan to discharge in: 24 Hours Time Spent Managing Pts Care (In Minutes): 35
[2024-01-06] MEDS: AMITRIPTYLINE 50 MG TAB PO SCH (20:35)
[2024-01-06] MEDS: MELATONIN 5 MG TABLET PO SCH (21:00)
[2024-01-07] MEDS: LACTULOSE 20 GM/30 ML UCUP PO PRN (05:17)
[2024-01-07 06:39] LABS: Absolute Eosinophils 0.2 K/uL (0-0.5); Absolute Lymphocytes (CBC) 2.9 K/uL (0.7-4.9); Absolute Monocytes 0.5 K/uL (0.1-1.3); Absolute Neutrophil 4.8 K/uL (1.8-8.0); Basophils % 0.5 % (0-1.3); Eosinophils % 2.2 % (0-4.4); Hematocrit 44.1 % (36.0-45.0); Hemoglobin 14.3 g/dL (12.0-15.0); Lymphocytes % 34.3 % (15.3-44.8); MCH 32.4 pg (27.0-35.0); MCHC 32.5 g/dL (32.0-36.0); MCV 99.9 fL (80-100); MPV 7.8 fL (7.6-11.3); Monocytes % 6.4 % (3.3-12.3); Neutrophils % 56.6 % (41.7-73.7); Platelets 282 thou/uL (152-406); RBC Red Blood Cell Count 4.42 M/uL (3.86-4.86); Red Cell Distribution Width 13.5 % (12.1-15.2)
[2024-01-07 06:51] LABS: Anion Gap 4.8 mEq/L (5.0-15.0); Potassium 3.8 mEq/L (3.5-5.1)
[2024-01-07 12:35] LABS: Specific Gravity 1.012 (1.005-1.030); Sqamous Epithelial <5 /HPF (None Seen); Transitional Epithelial <5 /HPF (None Seen); Urine Bacteria >50 /HPF (<20); Urine Bilirubin NEGATIVE (Negative); Urine Blood Negative (Negative); Urine Clarity Turbid (Clear); Urine Color Light-Yellow (Yellow); Urine Culture Reflex Order REFLEXED; Urine Glucose NEGATIVE (Negative); Urine Ketones NEGATIVE (Negative); Urine Microscopic Reflex YN ORDER UMIC; Urine Nitrite 2+ (Negative); Urine Protein NEGATIVE (Negative); Urine RBC <5 /HPF (None Seen); Urine Urobilinogen Normal (Normal); Urine pH 5.5 (5.0-7.0)
[2024-01-07] MEDS: MORPHINE 2 MG/ML SYR IV PRN (13:48)
--- NOTE | 2024-01-07 14:09 | P.PN ---
Date of Service: 01/07/24 Subjective: Awake, Speaks slowly, Working with physical therapy Attempting to control pain ROS: 10 point ROS as noted above, otherwise negative Physical exam GEN: Alert and oriented x2, NAD HEENT: Normal conjunctiva, sclera anicteric CV: RRR, S1-S2 present, no edema Pulm: Nonlabored respirations, on room air, clear BBS ABD: Soft and benign on palpation, nontender/nondistended, positive bowel sounds MSK: No joint tenderness Integumentary: No rashes Neuro: Normal speech, normal affect, strength 4/5 lower extremities Vitals reviewed Assessment: Multiple falls Back pain/radiculopathy with advanced spondylitic changes Parkinson's Simple appearing left adnexal cystic lesion 6.2 x 5.3 cm Plan: Multiple falls Back pain/radiculopathy with advanced spondylitic changes Typically lives alone does not use assistive devices for walking Has been staying with family/friends and using a walker the past few days Has been having falls daily or more since 12/31 as her left leg gives out on her when attempting to ambulate even with a walker CT lumbar spine showed advanced spondylitic changes unable to obtain MRI given deep brain stimulator Denies urinary or bowel incontinence that is new, saddle paresthesia, no midline back tenderness, sensation intact PT consultation, multimodal pain management Started on norco 7.5, lidoderm patch, gabapentin 100mg PO TID and PRN morphine IV-added Toradol x 1 with some improvement in symptoms Parkinson's Continue carbidopa/levodopa Simple appearing left adnexal cystic lesion 6.2 x 5.3 cm Given that patient is postmenopausal recommend follow-up with gynecology out patient for further evaluation DVT PPX: Lovenox Code status:Full Discharge Plan: Home Plan to discharge in: 24 Hours
[2024-01-07] MEDS: KETOROLAC 30 MG/ML INJ IV ONE (14:40)
[2024-01-07 23:46] VITALS: O2SAT 96
[2024-01-08 06:43] LABS: Absolute Eosinophils 0.2 K/uL (0-0.5); Absolute Lymphocytes (CBC) 2.2 K/uL (0.7-4.9); Absolute Monocytes 0.6 K/uL (0.1-1.3); Absolute Neutrophil 5.2 K/uL (1.8-8.0); Basophils % 0.3 % (0-1.3); Eosinophils % 2.7 % (0-4.4); Hematocrit 39.7 % (36.0-45.0); Hemoglobin 13.6 g/dL (12.0-15.0); MCH 34.4 pg (27.0-35.0); MCHC 34.3 g/dL (32.0-36.0); MCV 100.2 fL (80-100); MPV 7.9 fL (7.6-11.3); Monocytes % 7.6 % (3.3-12.3); Neutrophils % 62.4 % (41.7-73.7); Platelets 246 thou/uL (152-406); RBC Red Blood Cell Count 3.96 M/uL (3.86-4.86); Red Cell Distribution Width 13.2 % (12.1-15.2)
[2024-01-08 07:02] LABS: Anion Gap 5.8 mEq/L (5.0-15.0); Potassium 3.8 mEq/L (3.5-5.1)
[2024-01-08] MEDS: HYDROCODONE/APAP 10/325 TAB PO PRN (08:57)
--- NOTE | 2024-01-08 13:06 | EKG ---
Test Date: 2024-01-05 Test Time: 07:59:27 Street Commissioner: EDU MEASUREMENT RESULTS: Intervals: Rate: 143 GA: 88 QRSD: 106 QT: 110 QTc: 169 [place]: P: GA: 88 QRS: 39 T: 0 INTERPRETIVE STATEMENTS: Undetermined rhythm Cannot rule out Anteroseptal infarct, age undetermined Abnormal ECG No previous ECG available for comparison Electronically Signed On 01-08-24 12:57:44 CDT by Johnny Caban
[2024-01-08 16:42] VITALS: BP 119/55; TEMP 98.8
--- NOTE | 2024-01-08 16:59 | P.DS ---
Admission Date: 01/06/24 Discharge Date: 01/08/24 Disposition: TRANSFER TO SNF - REHAB Discharge Condition: FAIR Reason for Admission: Multiple Falls, Back pain Brief History of Present Illness: 78-year-old female with history of Parkinson's presents emergency room with chief complaint of multiple falls, low back/left leg pain. She reports has been having severe low back pain radiating to her left leg since 12/31. This is similar to an episode she had about a year ago. She was seen in the emergency department on the and prescribed steroids, pain medications and has not had any improvement. She is and typically lives alone but has been having help from friends and family since she is having these issues. Since 12/31 she is fallen at least once daily she is using her walker, her left leg gives out on her when she tries to ambulate. She was evaluated in the emergency department CT lumbar spine was performed on 12/31 showed advanced spondylitic changes. There is a known adnexal cyst will require follow-up with gynecology. Patient will be admitted under observation for multiple falls, weakness, back pain. Unable to get MRI due to deep brain stimulator. Hospital Course: Patient was admitted to the medical floor and the following medical problems addressed: Multiple falls Back pain/radiculopathy with advanced spondylitic changes Patient at baseline was not using any assistive device for walking. She started using a walker few days prior to admission Patient reports fallen multiple times since then. CT lumbar spine showed advanced spondylitic changes unable to obtain MRI given deep brain stimulator in place for Parkinson's disease Patient evaluated by physical therapy and skilled rehab recommended. Patient appears well-motivated and at this point has been able to sit at the edge of the bed with significant assistance. Patient's pain was managed with norco 10 mg, lidoderm patch, gabapentin 100mg PO TID. Acute cystitis without hematuria Urine culture grew GNR. Patient started on oral Levaquin. Parkinson's disease Patient with risk increasing number of falls. Case discussed with neurology Dr. Kyle who recommended to increase patient's short acting carbidopa/levodopa from 3 times daily to 4 times daily. Continued bedtime extended release carbidopa/levodopa Left adnexal cystic lesion 6.2 x 5.3 cm Given that patient is postmenopausal recommend follow-up with gynecology outpatient for further evaluation to rule out malignancy. Patient is aware of the adnexal cyst. Vital Signs/Physical Exam: Temp Pulse Resp BP Pulse Ox 98.8 F 87 18 119/55 L 94 01/08/24 16:00 01/08/24 16:00 01/08/24 16:00 01/08/24 16:00 01/08/24 16:00 General: Alert, In no apparent distress, Oriented x3 HEENT: Mucous membr. moist/pink Neck: Supple, JVD not distended Respiratory: Clear to auscultation bilaterally, Normal air movement Cardiovascular: No edema, Regular rate/rhythm, Normal S1 S2 Gastrointestinal: Normal bowel sounds, Soft and benign, Non-distended, No tenderness Musculoskeletal: No swelling Integumentary: No rashes, No cyanosis Neurological: Normal speech, Normal strength at 5/5 x4 extr, Cranial nerves 3-12 intact Lymphatics: No axilla or inguinal lymphadenopathy Laboratory Data at Discharge: WBC 8.30 thou/uL (4.3-10.9) 01/08/24 05:33 Hgb 13.6 g/dL (12.0-15.0) 01/08/24 05:33 Hct 39.7 % (36.0-45.0) 01/08/24 05:33 Plt Count 246 thou/uL (152-406) 01/08/24 05:33 Sodium 137 mEq/L (136-145) 01/08/24 05:33 Potassium 3.8 mEq/L (3.5-5.1) 01/08/24 05:33 BUN 31 mg/dL (7-18) H 01/08/24 05:33 Creatinine 0.74 mg/dL (0.55-1.02) 01/08/24 05:33 Glucose 99 mg/dL (74-106) 01/08/24 05:33 Home Medications: ALPRAZolam [Xanax*] 0.5 mg PO BEDTIME PRN 01/05/24 Amitriptyline HCl 100 mg PO BEDTIME 01/05/24 Carbidopa/Levodopa [Carbidopa-Levo ER 50-200 Tab] 1 each PO BEDTIME 01/05/24 Melatonin 5 mg PO BEDTIME 01/05/24 Multivit-Minerals/Folic Acid [Multivitamin Gummies] 200 mg PO DAILY 01/05/24 Rivastigmine Patch [Exelon 9.5 mg Patch] 9.5 patch TOP DAILY 01/05/24 Carbidopa/Levodopa [Carbidopa-Levo 25-100 mg Odt] 1.5 each PO QID #180 tab 01/08/24 Docusate [Colace Cap*] 100 mg PO BID cap 01/08/24 Gabapentin [Neurontin*] 100 mg PO TID cap 01/08/24 Hydrocodone 10/APAP 325 [[place] 10/325*] 1 tab PO Q6H PRN #15 tab 01/08/24 Lactulose [Cephulac*] 30 ml PO BID PRN #600 ml 01/08/24 Lidocaine 4% Patch [Lidoderm 5% Patch*] 1 patch TOP DAILY pat 01/08/24 levoFLOXacin [Levaquin] 750 mg PO DAILY #7 tab 01/08/24 New Medications: Carbidopa/Levodopa [Carbidopa-Levo 25-100 mg Odt] 1.5 each PO QID #180 tab levoFLOXacin [Levaquin] 750 mg PO DAILY #7 tab Hydrocodone 10/APAP 325 [[place] 10/325*] 1 tab PO Q6H PRN #15 tab PRN Reason: Pain Scale 5-7 (Moderate) Physician Discharge Instructions: Multiple falls Back pain/radiculopathy with advanced spondylitic changes Patient at baseline was not using any assistive device for walking. She started using a walker few days prior to admission Patient reports fallen multiple times since then. CT lumbar spine showed advanced spondylitic changes unable to obtain MRI given deep brain stimulator in place for Parkinson's disease Patient evaluated by physical therapy and skilled rehab recommended. Patient appears well-motivated and at this point has been able to sit at the edge of the bed with significant assistance. Patient's pain was managed with norco 10 mg, lidoderm patch, gabapentin 100mg PO TID. Parkinson's Continued carbidopa/levodopa Left adnexal cystic lesion 6.2 x 5.3 cm Given that patient is postmenopausal recommend follow-up with gynecology outpati ent for further evaluation to rule out malignancy. Patient is aware of the adnexal cyst. Diet: Regular Activity: Fall precautions Followup: NONE,NONE [Primary Care Provider] - 1-2 Weeks (Call for appointment.) Time spent managing pt's care (in minutes): 36
== END 2024-01-08 18:30 | DRG 74 ==
LOC: ER 07:29 → ERHOLD 11:15 → 4TH 13:01 → OBSVTOIN 01-06 17:56
PROVIDERS: ADMIT Hospitalist; ATTEND Internal Medicine
DX: M54.10 Radiculopathy, site unspecified (principal); N30.00 Acute cystitis without hematuria; G20.A1 Parkinson's disease without dyskinesia, without mention of fluctuations; R29.6 Repeated falls; Z88.0 Allergy status to penicillin; Z60.2 Problems related to living alone; Z91.81 History of falling; Z96.651 Presence of right artificial knee joint
CPT/HCPCS: 36415; 72193; 76856; 80048; 81001; 84484; 85025; 87077; 87086; 87088; 87186; 93005; 96374; 96375; 97161; 97530; 99285; G0378; J1650; J2001; J2270; J2405; Q9967

== ENCOUNTER 2024-03-13 09:00 | Inpatient (IN) | payer OTHER, BC ==
[2024-03-13 09:21] VITALS: BMI 25.9
[2024-03-13] MEDS ORDERED: POLYETHYL GLY 3350 17 GM/DOSE PO PRN (09:33)
[2024-03-13] MEDS: HYDROCODONE/APAP 5/325 MG TAB PO PRN (10:20)
--- NOTE | 2024-03-13 13:59 | P.RH.PN ---
Estimated Length of Stay: 12 Expected Discharge Date: 03/25/24 Discharge Disposition Plan: Home Family Support: Yes [employer] Goal: Mobility, Transfers, Self Care Vital Signs: Last Vital Signs Temp 97 F 03/13/24 09:13 Pulse 60 03/13/24 09:13 Resp 18 03/13/24 10:20 BP 112/57 L 03/13/24 09:13 Pulse Ox 91 03/13/24 10:20 Weight: 142 lb Physician Update: Labs pending. She is in significant pain due to spinal kyphosis and lordosis. Max assist for ambulation. Mod codey with upper body dressing. Will adjust the Parkinson's disease medication. Summary: Patient's care plan and fci goals have been reviewed and revised as necessary. Please see the Rehabilitation Signature page for all necessary signatures.
[2024-03-13] MEDS ORDERED: CARBIDOPA/LEVODOPA 25/100 TAB PO SCH ×2 (14:00)
[2024-03-13] MEDS: GABAPENTIN 300 MG CAP PO SCH (14:54)
[2024-03-13] MEDS: CARBIDOPA/LEVODOPA 25/100 TAB PO SCH (16:38)
[2024-03-13] MEDS: CARBIDOPA PO SCH (20:01)
[2024-03-13] MEDS: AMITRIPTYLINE 50 MG TAB PO SCH (20:01)
[2024-03-13] MEDS: DOCUSATE NA/SENNA CONC 1 TAB PO SCH (20:01)
[2024-03-13] MEDS: DULOXETINE 20 MG CAP PO SCH (20:01)
[2024-03-13] MEDS: LEVODOPA PO SCH (20:01)
[2024-03-13] MEDS: APIXABAN 2.5 MG TABLET PO SCH (20:01)
[2024-03-13] MEDS: ENSURE ENLIVE 237 ML CAN PO SCH (20:01)
[2024-03-13 21:05] LABS: Calcium Oxalate Crystals- Ur Few /HPF (None Seen); Specific Gravity > 1.030 (1.005-1.030); Sqamous Epithelial <5 /HPF (None Seen); Urine Bacteria None Seen /HPF (<20); Urine Bilirubin NEGATIVE (Negative); Urine Blood Trace (Negative); Urine Clarity Clear (Clear); Urine Color Yellow (Yellow); Urine Culture Reflex Order NOT NEEDED; Urine Glucose NEGATIVE (Negative); Urine Ketones TRACE (Negative); Urine Micro Reflex YN NO BILL MICROSCOPIC; Urine Mucus 2+ /HPF (None Seen); Urine Nitrite NEGATIVE (Negative); Urine Protein NEGATIVE (Negative); Urine Urobilinogen Normal (Normal); Urine WBC <5 /HPF (<5)
--- NOTE | 2024-03-14 02:31 | HP ---
Date of Admission: 03/13/2024 Time Of Service: 1 p.m. Chief Complaint: "I have been falling. I need to get stronger and stop falling." History Of Present Illness: Ms. Mahajan is a 78-year-old patient with multiple medical problems, w ho had been falling on multiple occasions at home. She was seen at [facility] on 01/05/2024 after experiencing 1 significant fall. Falls were likely related to her Parkinson's disease, which she nash s have carbidopa/levodopa along with deep brain stimulator implanted, that is managed by a neurologis t in [place]. After a fall, she had increasing radiating pain from the back to the foot, making it u nable for her to walk. She was discharged to snf for 2 weeks and discharged home to [facility]. While at home, she continued to struggle with her mobility at home cau sing her to move slower and slower and she eventually moved into her son's home for assistance. She had a post hospital followup with orthopedic surgeon, Dr. 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 She was evaluated by the Therapy Service at home, found to have significant back pain, depression, anxiety. In addition, significant weakness a nd decreased functional independence along with renal insufficiency. At that point, she was receivin g physical therapy, medical management, pain management. She was determined by Orthopedic Service to not be a good surgical candidate and it was recommended that conservative treatment be undertaken. She did prior to her multiple falls live independently at home and did have house with stair lift for navigating stairs. She ambulated with a rolling walker and with her son living next door was able t o function with his help. However, at this point, she requires maximum assistance for all mobility, unable to walk, and very difficult transfers requiring max assist, was able to reduce to 1 minute of standing at the sink and of course is performing well below her baseline and therefore referred for a ggressive inpatient rehabilitation. Inpatient rehabilitation necessary is if she is at home and [facility] to be at home. Chances are she will worsen and resulting in a fall and a fracture requiring a very extended stay in hospital. Inpatient Rehab will help her to return to her prior level of functi oning and reduce the risk of rehospitalization. Past Medical History: As noted above, Parkinson's disease with deep brain stimulator implantation. She has had right knee replacement in addition to other comorbidities as mentioned. Allergies: PENICILLIN. Medications: Elavil 100 mg at bedtime, Eliquis 2.5 mg twice daily, aspirin 81 mg daily, carbidopa/le vodopa she takes 25/100 two tablets at 7, 12, and at 5 and an extended release, which is the 50/200 a t nighttime, Duloxetine 20 mg twice daily, gabapentin 300 mg 3 times daily, [place] 5/325 every 6 hours as needed, lidocaine patch 2 patches daily as needed, Glycolax 17 g daily as needed, and Exelon patc h 9.5 mg daily. Laboratory Studies: Blood work is pending. X-ray/imaging: An MRI of the cervical, thoracic, and lumbar spine on 02/07/2024 shows cervical steno sis with kyphosis at C5, 6, 7 with left-sided foraminal stenosis at C5-6. There are no intraparenchy mal cord signal abnormalities. Cervical kyphosis noted between C4-C7. The thoracic spine MRI shows no compressive lesion. Lumbar spine MRI shows bilateral recess stenosis at L2-3, 3-4, 4-5 with left- sided foraminal stenosis at L3-L4 and L4-5. There is also hypertrophic degenerative changes of the f acets at L5-S1 bilaterally on the left at L4-5 and L3-4. In addition, there is sarcopenia. Family History: Noncontributory. Review of Systems: She does report mild myalgias, arthralgias. No rash. No psychiatric complaints. No active gastroin testinal issues. Still have some mild difficulty sleeping. No active genitourinary complaints and n o other positives on full systems review. Current Level Of Functioning: Eating, setup assistance. Oral hygiene, setup assistance. Toileting, moderate assistance, max assist for showering, upper body dressing moderate assistance, lower body d ressing maximum assistance, donning and doffing footwear maximal assistance. Rolling [id number], for sit to lying and lying to sitting on side of bed, moderate assistance. For igr-[id number]-mogpb and bed- to-chair transfer, maximal assistance. Toilet transfer, maximal assistance. At this point, not yet able to walk with a wheelchair. She mobilized 50 feet with dependence. Physical Examination: Vital Signs: Blood pressure 112/57, pulse 60, respiratory rate 18, temperature 97, oxygen saturation 91% on room air. Weight 142 pounds, height 5 feet 2 inches, BMI 26.0. General: Ms. Mahajan is lying comfortably in bed. HEENT: She appears normocephalic, atraumatic. Sclerae anicteric. Oropharynx moist. Neck: Supple. Chest: Clear. Extremities: No significant edema or cyanosis noted. She does have mild masklike face with bradykin esia, mildly increased tone in upper and lower extremities, diffuse weakness around 4 to 5 proximally and distally. No focal weakness. Mild stocking-glove loss to light, touch, temperature. Symmetric reflexes. She is being evaluated by the Therapy Service. In terms of gait, very difficult and unst iman at this point. We are beginning to work with her to ambulate and to mobilize a wheelchair. Assessment: Ms. Mahajan is admitted to the rehabilitation unit with impairment code 06, neurologic al condition. Her impairment group code is 03.2, parkinsonism. Etiologic diagnosis is Parkinson's d isease with dyskinesia fluctuations. Comorbidities are renal insufficiency, anxiety, cervical and daron mbar stenosis, decreased mobility, decreased physical functioning, depression, scoliosis with recurre nt falls, spinal stenosis, weakness, also bilateral footdrop, sarcopenia, neurogenic claudication. Plan: 1.She will have physical, occupational, and speech therapy 3.5 hours, 5 of 7 days. 2.Her Parkinson's medications have been adjusted to 2 tablets 3 times daily of carbidopa/levodopa 25 /100. She will have the extended-release carbidopa/levodopa at night started. Continue Eliquis 2.5 mg twice daily for DVT prophylaxis, Elavil 100 mg daily which will help with drooling, but may consid er decreasing the dose, [place] 5/325 every 6 hours for pain, duloxetine 20 mg twice daily, also to try to address her neuropathic pain, gabapentin 300 mg 3 times daily also for lumbar and cervical radicu lar pain, rivastigmine for cognitive impairment. Continue Glycolax for constipation, lidocaine patch applied as well for pain improvement. Comorbidities That Are Impacting Rehabilitation: She has some mild cognitive impairment, which will be worked on with speech, may make it difficult for her to follow all precautions in terms of mobiliz ing while in a chair prior to standing to reduce risk of freezing and falling. Also making safe deci sions as she ambulates which is to use a rolling walker at all times and to call for help if she is t rying to mobilize when the walker is out of reach. The rivastigmine patch will be applied daily to h elp with neuropathic pain related to cervical and lumbar compression may be a challenge. The duloxet ine dosage may be increased to address that and DVT prophylaxis will be continued. Hydration levels will be followed with blood work. Risk of infection also followed and potential for constipation is there along with a physician for orthostatic hypotension given her Parkinson's disease. Rehab Specific Plan: Ms. Mahajan will have physical, occupational, and speech therapy 3.5 hours, 5 to 7 days, to improve her ability to safely transfer from bed to chair to wheelchair to a toilet and shower and to perform toileting and showering. Also given ability to begin to ambulate at least fernie sehold distances of 50 feet with a rolling walker safely and with perhaps just supervision required f or modified independence if possible. Also, to mobilize a wheelchair 250 feet with modified independ ence. She will work on attempting going up and down steps at least 5 steps with bilateral handrails. The goal will be towards modified independence. Ms. Mahajan has a good understanding of the process of admission to the inpatient rehabilitation un it and how she will benefit from physical, occupational, and speech therapy. She will have 24 hours a day, 7 days a week, skilled rehabilitation nursing, daily physician evaluation and management, and clinical social worker evaluation and management for discharge planning, home equipment, and followup along with continuing therapy and following up with physicians. If need be, additional help from the hospi talist service will be sought. Prior to discharge, given the potential for orthostatic changes, worsening cognitive functioning, and Parkinson's disease, she may require even more extended stay than is allowed in inpatient rehab and may have to consider snf at that point. At this point, we will plan for her to be able t o go home and continue therapy as her son is available and Home Health hopefully will be able to allo w her to thrive and do very well and potentially go to outpatient services. The presence of cognitiv e issues may be addressed by making adjustments to medications in addition to perhaps memantine on to p of the rivastigmine. She is on high dose of Elavil or amitriptyline, which may increase anticholin ergic affects such as urinary retention, dry mouth that could aggravate her condition, may have to de crease the dosage. Length Of Stay: About 10 to 12 days. Disposition: Home with family and continue therapy via Home Health. Prognosis: Good. Code Status: Full code. Rehab Specific Goals: 1.To become independent with upper and lower body dressing and donning and doffing footwear. 2.To attempt at least modified independence with household distances of 50 feet with a rolling walke r. 3.Mobilize a wheelchair with modified independence 250 feet. 4.Attempt to go up and down 5 steps with supervision. 5.Independently perform cognitive functioning for safety awareness, taking medications, and all phys ician followup as appropriate. The above goals were reviewed with Ms. Mahajan and she is in agreement. By signing this document, I acknowledge I personally performed a full physical examination on Ms. Fuad robledo no later than 24 hours after her admission to the inpatient rehabilitation facility and determ ined that she is able to tolerate the above course of treatment at an intensive level for a reasonabl e period of time. A detailed individualized plan of care for her will be completed by hospital day 4 based on the preadmission screen, history and physical, and therapy evaluations. NAS Voice ID: [id number]
[2024-03-14 06:20] LABS: Absolute Eosinophils 0.1 K/uL (0-0.5); Absolute Monocytes 0.3 K/uL (0.1-1.3); Absolute Neutrophil 1.7 K/uL (1.8-8.0); Basophils % 0.4 % (0-1.3); Eosinophils % 3.1 % (0-4.4); Hematocrit 36.2 % (36.0-45.0); Hemoglobin 12.2 g/dL (12.0-15.0); Lymphocytes % 47.9 % (15.3-44.8); MCH 32.6 pg (27.0-35.0); MCHC 33.7 g/dL (32.0-36.0); MCV 96.6 fL (80-100); MPV 7.9 fL (7.6-11.3); Monocytes % 7.3 % (3.3-12.3); Neutrophils % 41.3 % (41.7-73.7); Nucleated Red Blood Cells % 0.1 % (0-0); Platelets 235 thou/uL (152-406); RBC Red Blood Cell Count 3.74 M/uL (3.86-4.86); Red Cell Distribution Width 13.7 % (12.1-15.2)
[2024-03-14 06:38] LABS: Albumin 2.8 g/dL (3.4-5.0); Anion Gap 7.4 mEq/L (5.0-15.0); Magnesium 1.9 mg/dL (1.6-2.4); Potassium 3.4 mEq/L (3.5-5.1); Prealbumin 15.6 mg/dL (20-40)
[2024-03-14] MEDS: ASPIRIN 81 MG CHEWABLE TABLET PO SCH (08:05)
[2024-03-14] MEDS: RIVASTIGMINE 9.5 MG/24 HR PATCH TD SCH (08:47)
[2024-03-14] MEDS: LIDOCAINE 4% PATCH TOP SCH (08:47)
[2024-03-14] MEDS: POTASSIUM CL SA 10 MEQ TAB PO ONE (16:34)
[2024-03-15] MEDS: MAGNESIUM OXIDE 400 MG TAB PO SCH (20:15)
[2024-03-16] MEDS: TRAMADOL HCL 50 MG TAB PO PRN (15:13)
--- NOTE | 2024-03-17 02:31 | PN ---
Date of Progress Note: 03/16/2024 Time Of Service: 1:20 a.m. Subjective: Ms. Mahajan is doing very well so far with her Parkinson disease for which she is doin g therapy and is agreeable. Stools are improved. She denies any significant myalgias or arthralgias . No other complaints. Objective: No fevers, chills, nausea, vomiting. No other new complaints. Mood is stable and withou t any depression. She did have orthostatics today and has blood pressure support, likely related to autonomic dysfunction from her Parkinson disease. Physical Examination: VITAL SIGNS: Blood pressure 103/52, pulse 88, respiratory rate 18, temperature 97.4, oxygen saturati on 95%. General: Ms. Mahajan is resting comfortably. She is in no significant distress. HEENT: She appears normocephalic and atraumatic. Sclerae are anicteric. Oropharynx pink and moist, Neck: Supple. Chest: Clear. Heart: Regular. Laboratory Studies: White blood cell count is 4.2, hemoglobin 12.2, platelets 235. Her potassium, w hich was low on the 7th was 3.4, is now 4.0. Sodium 141, chloride 109, carbon dioxide 28, BUN 70, cr eatinine 0.51, calcium 9.2, magnesium 1.9, albumin 2.8, prealbumin 15.6. Her urinalysis shows trace ketones, trace blood, 5-10 red blood cells, specific gravity greater than 1.03. X-ray/imaging: No new x-rays or imaging. Medications: [place] 5/325 every 6 hours as needed; Elavil 100 mg at bedtime; Eliquis 2.5 mg twice maria ly; aspirin 81 mg daily; carbidopa-levodopa at 25/100 at 7, 12, and 5 p.m.; duloxetine 20 mg twice da agusto; gabapentin 300 mg 3 times daily; lidocaine patch apply 2 topically daily; magnesium oxide 400 mg twice daily; melatonin 3 mg at bedtime; Ensure Enlive 237 mL twice daily. She has the Exelon patch 9.5 mg daily, Senokot-S 1 twice daily, tramadol 50 mg every 4 hours as needed to help control her marleny n, and Desyrel 5 mg at bedtime. Progress Made With Physical, Occupational, And Speech Therapy: Today, with physical therapy, multipl e jul-qr-fuztm transfers with a wheelchair done with maximum assistance, multiple pqz-ow-vrdon transf ers in parallel bars with minimum assistance. She did ambulate a total of 2 feet and 4 feet today. Wheelchair mobilization 50 feet and 60 feet twice with moderate assistance for maneuvering. With occ upational therapy, she was leaning a good bit to the right therapist noted and worked on [facility] to improve that. With speech, she demonstrated convergent naming task with 100% accuracy for abstr act concepts. She negotiated and completed exercises with abstract concepts with 90% accuracy, sente nce completion with 100% accuracy and intelligibility. Assessment: Ms. Hoffmann is a 78-year-old patient in the rehabilitation unit with Parkinson disease an d dyskinesia. She is making fair progress with very slow in terms of ambulation with walking, better progress with wheelchair mobilization. She has decreased mobility, decreased physical functioning, moderate pain addressed by pain medication adjustment. She has dementia addressed with the [facility]. She has Elavil for neuropathic pain, Eliquis for DVT prophylaxis, aspirin for stroke risk reduc tion, carbidopa-levodopa for her Parkinson disease, duloxetine for neuropathic pain along with gabape ntin. She has lidocaine patch added for that as well. Plan: Again, continue with physical, occupational, and speech therapy 3.5 hours, 5 of 7 days. Comor bid conditions, which are mentioned above were addressed by continuing her medications. SHAE/GRACIE Voice ID: [id number] Report ID: [id number]
[2024-03-17] MEDS: CYANOCOBALAMIN 1000MCG/ML INJ SQ ONE (15:18)
--- NOTE | 2024-03-17 22:58 | PN ---
Date of Progress Note: 03/17/2024 Time Of Service: 1:30 p.m. Subjective: Ms. Mahajan is resting in bed in between therapy sessions. She has no new complaints. Parkinsonism features still present. Objective: No fevers, chills, myalgias, arthralgias, rash. She does have autonomic dysfunction with Parkinson disease, especially with orthostatics. Physical Examination: Vital Signs: Blood pressure is 101/51, pulse 66, respiratory rate 18, temperature 97.2, oxygen satur ation 95%. General: Ms. Mahajan again is sitting comfortably, getting her plate for lunch. HEENT: She is normocephalic, atraumatic. Sclerae anicteric. Oropharynx moist. Neck: Supple. Chest: Clear. Heart: Regular. Extremities: No significant edema or cyanosis noted. Mask-like face. Increased rigidity in the extr emities. Medications: Medications have been reviewed and aside from the tramadol yesterday being put 50 mg ev germaine 6 hours as needed, no new changes in medications are made. X-ray/imaging: No new x-rays or imaging. Laboratory Studies: No new laboratory studies. Progress Made With Physical And Occupational Therapy: Today. with physical therapy, she did multiple [id number] transfers with a wheelchair, maximum assistance required. She did fishing rod mechanic parallel ba rs and ambulated 3 to 4 feet today, maximum assistance required. Mobilized wheelchair 120 feet with minimum assistance. With occupational therapy, maximum assistance for [id number]-vm-[id number] transfers in the shower and use of grab bars. Did fair static and dynamic sitting balance when completing activities of daily living. With her speech therapy, she did convergent naming with 100% accuracy for abstract concepts. The narrative exercises completed with abstract concepts with 90% accuracy. Sentence comp letion tasks demonstrated 100% accuracy and intelligible. Assessment: Ms. Mahajan is a 78-year-old patient in the rehabilitation unit with Parkinson disease with dyskinesia. She is making fair progress in terms of recovery of her ability to mobilize and tr ansfer, but still significantly impeded by inability to stand and ambulate. That has been longstandi ng as noted previously. She has decreased mobility, decreased physical functioning, risk of deep vei n thrombosis, stroke risk, and the neuropathic pain treated with gabapentin and lidocaine. Plan: She will have physical, occupational, and speech therapy continue 3.5 hours, 5 of 7 days. She will continue with the list of comorbid condition medications to address those issues. We will foll ow up her complete blood count differential, which showed a slightly low white blood cell count. In addition to mild malnutrition, hypokalemia has been addressed and interval blood work will be followeloina LOVELL Voice ID: [id number] Report ID: [id number]
[2024-03-18] MEDS: CYANOCOBALAMIN 1,000 MCG TAB PO SCH (06:49)
[2024-03-18] MEDS: NA CHLORIDE 0.9% 1,000 ML IV SCH (15:20)
--- NOTE | 2024-03-19 01:58 | PN ---
Date of Progress Note: 03/18/2024 Time Of Service: 1:40 p.m. Subjective: Ms. Mahajan is resting very well. She has been mobilizing much better, still has sign ificant way to go with her Parkinson's with dyskinesia and some bradykinesia. She has again no new c omplaints. Objective: No fevers, chills, nausea, vomiting. Still has some autonomic dysfunction with drops in blood pressure with mobilization. She does have now medications on board to help assist that, MARLINE chester as well. Physical Examination: Vital Signs: Blood pressure 116/56, pulse 73, respiratory rate 16, temperature 98.2, oxygen saturati on 95%. Earlier today, blood pressure 96/54, pulse 62. Her medication adjustment does include midodrine 5 mg at seven and at noon. Examination as noted in terms of blood pressure. She is mobilizing better. Still has mild masked fa cies . Ease of movement. Mild bradykinesia noted. Otherwise, sitting in a chair beside t he bed and not having much in terms of complaints. Air movement is good. Laboratory Studies: No new laboratory studies. X-ray/imaging: No new x-rays or imaging. Medications: As noted, they have been adjusted. She is continuing the trazodone for insomnia and tr amadol for pain. She has normal saline, receiving today because of her hypotension 75 cc an hour of normal saline for 1 L. Senokot-S for constipation. She has rivastigmine, which is Exelon patch for her dementia. Midodrine for her orthostatic hypotension related to the Parkinson's autono kirstin dysfunction. Magnesium oxide for muscle spasms. She has duloxetine to help with neuropathic marleny n and mood. She has carbidopa/levodopa 2 tablets 3 times daily to help with Parkinson disease sympto ms. Eliquis 2.5 mg twice daily for DVT prophylaxis. Elavil at night for depression and drooling. N orco for pain. Progress Made With Physical, Occupational, And Speech Therapy: With physical therapy, djl-bx-dtkel t ransfer with wheelchair was at maximum assistance, multiple were done in the parallel bar with minimu m assistance. She did mobilize wheelchair 150 feet and 50 feet with minimum assistance. With her oc cupational therapy, she required partial assistance for sit to stand. She did engage bilateral upper extremities. Thera-Band, worked well with that. With speech, she recalled 2/2 unrelated pictures using memory strategies after 5 minutes and 3/3 after 5 minutes, and then 4/4 after 5 minut es. Convergent thinking for abstract concepts done with 100% accuracy. Assessment And Plan: Ms. Mahajan is a 78-year-old patient with Parkinson disease with dyskinesia a nd bradykinesia. She is doing very well in terms of recovery and mobilization via wheelchair, still somewhat challenged by mobilization via a walker. She does have decreased mobility, decreased physic al functioning. She has neuropathic pain and orthostatic hypotension is a challenge. She has decrea sed energy, depression, malnutrition, dementia, and again receiving some IV fluids. Plan will be of course to continue with physical, occupational, and speech therapy and continue with all comorbid con dition medications, which have been listed. SHAE/GRACIE Voice ID: [id number] Report ID: [id number]
[2024-03-19 05:58] LABS: Absolute Eosinophils 0.2 K/uL (0-0.5); Absolute Lymphocytes (CBC) 1.7 K/uL (0.7-4.9); Absolute Monocytes 0.4 K/uL (0.1-1.3); Absolute Neutrophil 3.1 K/uL (1.8-8.0); Basophils % 0.6 % (0-1.3); Eosinophils % 3.6 % (0-4.4); Hematocrit 34.4 % (36.0-45.0); Lymphocytes % 31.3 % (15.3-44.8); MCH 31.6 pg (27.0-35.0); MCHC 31.9 g/dL (32.0-36.0); MPV 8.2 fL (7.6-11.3); Monocytes % 7.3 % (3.3-12.3); Neutrophils % 57.2 % (41.7-73.7); Platelets 221 thou/uL (152-406); RBC Red Blood Cell Count 3.47 M/uL (3.86-4.86); Red Cell Distribution Width 13.5 % (12.1-15.2)
[2024-03-19 06:27] LABS: Albumin 2.6 g/dL (3.4-5.0); Magnesium 2.1 mg/dL (1.6-2.4); Prealbumin 16.1 mg/dL (20-40)
[2024-03-19] MEDS: MIDODRINE HCL 5 MG TABLET PO SCH (07:29)
--- NOTE | 2024-03-20 01:35 | PN ---
Date of Progress Note: 03/19/2024 Time Of Service: 1:35 p.m. Subjective: Ms. Mahajan is doing therapy, resting comfortably, in no significant distress. She savage s no new complaints. She is mobilizing somewhat better with her Parkinson disease medications. She does have orthostatic hypotension related to autonomic dysfunction from Parkinson's. She did receive some IV fluids, had low potassium and that has been addressed. She reports no new complaints. Objective: No fevers, chills. No myalgias, arthralgias. No rash. No psychiatric complaints. Physical Examination: Vital Signs: Blood pressure 101/56, pulse 64, respiratory rate 16, temperature 97.5, oxygen saturati on 95%. General: Ms. Mahajan seen again is resting comfortably. She is in no significant distress. HEENT: She is normocephalic, atraumatic. Sclerae anicteric. Neurologic: She does have again Parkinson's with decreased facial expression, although that has impr margo. She has some decrease in rate of word production. Otherwise, no new findings on examination. Laboratory Studies: White blood cell count 5.5, hemoglobin 11, platelets 221. Sodium 141, potassium 4.0, chloride 108, carbon dioxide 30, BUN 22, creatinine 0.64, prealbumin 16.1, albumin 2.6, magnesi um 2.1, calcium 9.0, glucose of 93. X-ray/imaging: No new x-rays or imaging done. Medications: Have been reviewed. She is on B12 for energy started on 03/18. She also has midodrine 5 mg twice daily to help support her blood pressure due to autonomic dysfunction related to Parkinso n disease and again received some IV fluids 1 L at 75 cc an hour of normal saline. Progress Made With Physical, Occupational, And Speech Therapy: With physical therapy today, she did ogwjuk-za-flt transfers with maximum assistance. Kzo-dg-kvzxk transfers from wheelchair, maximum ass istance required. Did report some back pain as she was trying to mobilize. Subsequently, she did mo bilize wheelchair 150 feet and 75 feet with standby assistance for maneuvering. With occupational th marah, independent with feeding, standing at the sink performed oral hygiene and grooming independent ly. Drc-ns-osjrc transfers, toilet transfers, maximum assistance required. With her speech, she rec alled details of a picture seen with 90% accuracy without cues. Divergent naming used during a task requiring to name items by category and beginning letter. She had decreased selective attention, steph eared to be a deficit area, which the therapist notes she is working with. Assessment: Ms. Mahajan is a 78-year-old patient with Parkinson disease. She has decreased mobili ty, decreased physical functioning, cognitive impairment in addition to depression. Back pain addres sed with tramadol, Senokot-S addressed her constipation. She has rivastigmine 9.5 mg patch daily for dementia, Ensure Enlive for malnutrition, midodrine for autonomic dysfunction with orthostatic hypot ension, lidocaine patch for back pain, gabapentin for her neuropathic and back pain, Sinemet which jaqueline duvall is taking 2 tablets 3 times daily for Parkinson disease, Eliquis 2.5 mg twice daily for her DVT pro phylaxis, amitriptyline at night and she has Brandon 5/325 every 6 hours as needed. Note, h er amitriptyline or Elavil, which is 100 mg at bedtime will be switched to 50 mg at bedtime to reduce the risk of anticholinergic effects and the potential for worsening cognitive impairment in a patien t who was already diagnosed with dementia. SHAE/GRACIE Voice ID: [id number] Report ID: [id number]
--- NOTE | 2024-03-20 13:36 | P.RH.PN ---
Estimated Length of Stay: 16 Expected Discharge Date: 03/31/24 Discharge Disposition Plan: Home Vital Signs: Last Vital Signs Temp 98.0 F 03/20/24 07:00 Pulse 58 03/20/24 07:00 Resp 16 03/20/24 09:01 BP 98/56 L 03/20/24 07:00 Pulse Ox 96 03/20/24 09:01 Laboratory: Laboratory Last Values WBC 5.50 thou/uL (4.3-10.9) 03/19/24 05:10 RBC 3.47 M/uL (3.86-4.86) L 03/19/24 05:10 Hgb 11.0 g/dL (12.0-15.0) L 03/19/24 05:10 Hct 34.4 % (36.0-45.0) L 03/19/24 05:10 MCV 99.0 fL (80-100) 03/19/24 05:10 MCH 31.6 pg (27.0-35.0) 03/19/24 05:10 MCHC 31.9 g/dL (32.0-36.0) L 03/19/24 05:10 RDW 13.5 % (12.1-15.2) 03/19/24 05:10 Plt Count 221 thou/uL (152-406) 03/19/24 05:10 MPV 8.2 fL (7.6-11.3) 03/19/24 05:10 Neutrophils % 57.2 % (41.7-73.7) 03/19/24 05:10 Lymphocytes % 31.3 % (15.3-44.8) 03/19/24 05:10 Monocytes % 7.3 % (3.3-12.3) 03/19/24 05:10 Eosinophils % 3.6 % (0-4.4) 03/19/24 05:10 Basophils % 0.6 % (0-1.3) 03/19/24 05:10 Absolute Neutrophils 3.1 K/uL (1.8-8.0) 03/19/24 05:10 Absolute Lymphocytes 1.7 K/uL (0.7-4.9) 03/19/24 05:10 Absolute Monocytes 0.4 K/uL (0.1-1.3) 03/19/24 05:10 Absolute Eosinophils 0.2 K/uL (0-0.5) 03/19/24 05:10 Absolute Basophils 0.0 K/uL (0-0.5) 03/19/24 05:10 Sodium 140 mEq/L (136-145) 03/19/24 05:10 Potassium 4.0 mEq/L (3.5-5.1) 03/19/24 05:10 Chloride 108 mEq/L (98-107) H 03/19/24 05:10 Carbon Dioxide 30 mEq/L (21-32) 03/19/24 05:10 Anion Gap 6.0 mEq/L (5.0-15.0) 03/19/24 05:10 BUN 22 mg/dL (7-18) H 03/19/24 05:10 Creatinine 0.64 mg/dL (0.55-1.02) 03/19/24 05:10 Est GFR (CKD-EPI) 90 ml/min (=/>90) 03/19/24 05:10 Glucose 93 mg/dL (74-106) 03/19/24 05:10 Calcium 9.0 mg/dL (8.5-10.1) 03/19/24 05:10 Magnesium 2.1 mg/dL (1.6-2.4) 03/19/24 05:10 Albumin 2.6 g/dL (3.4-5.0) L 03/19/24 05:10 Prealbumin 16.1 mg/dL (20-40) L 03/19/24 05:10 Urine Color Yellow (Yellow) 03/13/24 20:20 Urine Clarity Clear (Clear) 03/13/24 20:20 Urine pH 5.0 (5.0-7.0) 03/13/24 20:20 Ur Specific [place] > 1.030 (1.005-1.030) H 03/13/24 20:20 Glucose (UA)(Auto) Negative (Negative) 03/13/24 20:20 Urine Ketones Trace (Negative) H 03/13/24 20:20 Urine Blood Trace (Negative) H 03/13/24 20:20 Urine Nitrite Negative (Negative) 03/13/24 20:20 Urine Bilirubin Negative (Negative) 03/13/24 20:20 Urine Urobilinogen Normal (Normal) 03/13/24 20:20 Ur Leukocyte Esterase Negative Susana/uL (Negative) 03/13/24 20:20 Urine RBC 5-10 /HPF (None Seen) H 03/13/24 20:20 Urine WBC <5 /HPF (<5) 03/13/24 20:20 Ur Squamous Epith Cells <5 /HPF (None Seen) 03/13/24 20:20 Calcium Oxalate Crystal Few /HPF (None Seen) 03/13/24 20:20 Urine Bacteria None seen /HPF (<20) 03/13/24 20:20 Urine Mucus 2+ /HPF (None Seen) 03/13/24 20:20 Urine Culture Reflexed Not needed 03/13/24 20:20 Urine Total Protein Negative (Negative) 03/13/24 20:20 Weight: 142 lb Wound Present: No Closed Surgical Incision Present: No Negative Pressure Wound Therapy Present: No Physician Update: Moderate dysarthria related to Parkinson's disease. WC 75' with SBA. Kyphotic ambulation and high tendency of falling. She has a Chetan lift at home. No LTG with OT. Max assist with most ADLs. Supervision with oral hygiene and upper body dressing. She has marked spinal stenosis. Summary: Patient's care plan and custodial goals have been reviewed and revised as necessary. Please see the Rehabilitation Signature page for all necessary signatures.
[2024-03-20] MEDS: GABAPENTIN 300 MG CAP PO SCH (19:19)
[2024-03-20] MEDS: AMITRIPTYLINE 50 MG TAB PO SCH (19:20)
[2024-03-23] MEDS: CRANBERRY FRUIT EXTRACT 425 MG CAPSULE PO SCH (19:09)
--- NOTE | 2024-03-24 02:41 | PN ---
Date of Progress Note: 03/23/2024 Time Of Service: 1:25 p.m. Subjective: Ms. Mahajan is doing well with her recovery with Parkinson's, with dyskinesia. She is mobilizing better and responding to therapy, and has no new complaints. Objective: No fevers, chills, nausea, vomiting. No other positives on systems review. Physical Examination: Vital Signs: Blood pressure 120/58, pulse 72, respiratory rate 16, temperature 97.6, oxygen saturati on 97%. General: Ms. Mahajan is resting well. Some mask-like face. Decreased mobility. She has bradykin esia, but no new deficits or focal deficits. Laboratory Studies: No new laboratory studies. Medications: Medications have been reviewed and are unchanged. Progress Made With Physical, Occupational, And Speech Therapy: Today, with physical therapy, she did work in the parallel bars. Completed standing tolerance in parallel bars with contact guard assista nce. Family was present. Flb-ze-mndgh exercises completed. In addition, she did ambulate 10 to 12 feet twice with contact guard assistance. Had poor posture, but no loss of balance. Hvc-lv-wsnog tr ansfers and wheelchair with moderate assistance and in parallel bars with standby assistance. With h er speech, compensatory speech strategies to improve intelligibility, she was 90% intelligible with c ues. Divergent naming for abstract categories completed with 60% accuracy. Assessment And Plan: Ms. Mahajan is a 78-year-old patient with Parkinson disease with decreased mo bility, decreased physical function, dyskinesia. She is making slow progress in terms of her ability to mobilize safely with a walker, even in parallel bars, significantly challenged. She is mobilizin g better with a wheelchair. She does have some cognitive challenges as noted. She has comorbid cons tipation. Fahw-gh-mirkcrif dementia. Orthostatic hypotension from dysautonomia. Depression and anx iety. Plan: She will continue with physical, occupational, and speech therapy 3.5 hours, 5 of 7 days. Con tinue with Sinemet 2 tablets at 7, 12, and 5 and this is 25/100. B12, continue daily for energy. El iquis 2.5 mg twice daily for DVT prophylaxis. She continues Elavil for antidepressant effect and for drying of oral secretions, which is helpful for her drooling. Duloxetine continued for depression. She has melatonin for insomnia, midodrine for blood pressure support, the Exelon patch for cognitive impairment, tramadol for pain, and trazodone for insomnia. SHAE/GRACIE Voice ID: [id number] Report ID: [id number]
[2024-03-24] MEDS: MELATONIN 3 MG TABLET PO PRN (19:46)
--- NOTE | 2024-03-24 22:23 | PN ---
Date of Progress Note: 03/24/2024 Time Of Service: 1:45 p.m. Subjective: Ms. Mahajan is resting comfortably. She is in between therapy sessions. She has no c omplaints. She is so far happy with the progress made. She of course has Parkinson's disease with d ifficulty with her mobilization and was in the shower. Did report some difficulty with sleeping and trazodone added to help with sleep. Objective: No fevers, chills, nausea, vomiting. Again, reports some difficulty sleeping, but will b e happy with therapy so far. Physical Examination: Vital Signs: Blood pressure 118/65, pulse 75, respiratory rate 18, temperature 97.4, oxygen saturati on 94%. General: Ms. Mahajan has no new or focal deficits. Still masklike face. Decreased mobility, decr eased physical functioning with bradykinesia noted. Otherwise, no new findings on examination. Laboratory Studies: No new laboratory studies. X-ray/imaging: No new x-rays or imaging. Medications: As noted, medications have been adjusted to include trazodone for her sleep. She has m edications including midodrine for pressure support, Ensure Enlive for her malnutrition, Exelon patch for memory loss, Senokot for constipation, tramadol for pain along with gabapentin and duloxetine. She has carbidopa/levodopa 25/100 at 7, 12, and 5 o'clock, just 2 tablets each, aspirin 81 mg daily f or stroke risk reduction along with Eliquis 2.5 mg twice daily for DVT risk reduction, Elavil for her anticholinergic effects to reduce drooling. Progress Made With Physical, Occupational, And Speech Therapy: Today with physical therapy, she did ambulate 15 feet with minimal assistance using a rolling walker and an additional 7 feet with minimum assistance, complained of some issues of moving lower extremities. She did umz-mk-hkhqv transfers w ith modified independence. Bed mobility required mild assistance. With occupational therapy, sit-to -stand transfers maximum assistance, shower transfer also maximum assistance. She did partial bathin g and did require assistance for lower body legs and feet and required partial assistance for lower b keshawn dressing as well, some difficulty donning socks. With speech, she used organizational thinking s kills to give definitions to multiple meaning words. She was able to give 2 definitions with 100% ac curacy and minimum assistance for 3 definitions with 50% accuracy. Assessment And Plan: Ms. Mahajan is a 78-year-old patient in rehabilitation unit with Parkinson's with dyskinesia and postural instability with decreased mobility, decreased physical functioning, and she is making fair overall progress in terms of recovery from the Parkinson's to allow for more impr margo mobility, flexibility, decreased risk of falling, still very limited in terms of her ambulation. She has DVT risk reduction on board with Eliquis again and carbidopa/levodopa for Parkinson's, dulo xetine for neuropathic pain and depression, melatonin for insomnia, midodrine for orthostatic hypoten shellie associated with Parkinson's disease. She has the Exelon patch for dementia, tramadol for pain, and trazodone for sleep and she will continue with physical, occupational, and speech therapy for 3.5 hours, 5 of 7 days. SHAE/GRACIE Voice ID: [id number] Report ID: [id number]
--- NOTE | 2024-03-25 20:17 | PN ---
Date of Progress Note: 03/25/2024 Time Of Service: 1:40 p.m. Subjective: Ms. Mahajan is doing well, resting comfortably, still worse with her Parkinson's sympt oms with dyskinesia and making overall fair progress with her mobilization, ability to do all of her activities including daily living activities. Objective: No fevers or chills. No nausea or vomiting. No significant myalgias, arthralgias, rash, or other complaints. Physical Examination: Vital Signs: Blood pressure is 116/55, pulse 67, respiratory rate 17, temperature 97.3, oxygen satur ation 95%. General: Ms. Mahajan is resting comfortably in no significant distress. HEENT: She is normocephalic, atraumatic. Sclerae anicteric. Oropharynx pink and moist. Neck: Supple. Neurological: Does have generalized bradykinesia, but is happy so far with therapy. No focal defici ts. Laboratory Studies: No new laboratory studies. X-ray/imaging: No new x-rays or imaging. Medications: Have been reviewed and are continued unchanged. She is doing very well. Progress Made With Physical, Occupational, And Speech Therapy: With physical therapy today, she comp leted multiple lau-dx-etfbm transfers with minimum assistance. Simulated car transfer with minimum a ssistance and completed wheelchair mobilization 50 feet twice with supervision to [facility]. In addition, she also ambulated with a rolling walker 25 feet 3 times, 15 feet twice with contac t guard assistance. Did have poor posture due to scoliosis and is very slow with her mobilization. She does have a knee and hip flexion and that was noted to be more when she was ambulating with a the rapist. With occupational therapy, dtw-st-psuah and grab bars with contact guard assistance required maximum assistance for toilet transfers, even using the grab bars. Again, she has been leaning forw agnieszka. She is in the wheelchair. Encouraged to her good posture. In terms of speech, she did review with the therapist compensatory speech strategies to reduce the rate of speech over articulation and increased loudness. She did complete open ended sentences with 80% intelligibility and formulated or iginal sentences with 85% intelligibility. Assessment And Plan: Ms. Mahajan is a 78-year-old patient with Parkinson disease with dyskinesia, making slow overall progress in terms of recovery and in terms of mobilization, transfers and perform ing activities of daily living. She has decreased mobility, decreased physical functioning, insomnia , constipation, dementia, depression with Parkinson's. Plan: She will continue with all therapy, physical, occupational, and speech. Continue with comorbi d condition medications. Continue with the carbidopa/levodopa 25/100 tablets at 7, 12, and at 5 p.m. Neuropathic pain addressed with gabapentin. Melatonin for insomnia. Midodrine for orthostatic hyp otension associated with Parkinson's disease. Senokot-S for constipation. Tramadol for pain. All m edications as noted are continued unchanged. LB/MODL Voice ID: [id number] Report ID: [id number]
[2024-03-25] MEDS: TRAZODONE 50 MG TABLET PO PRN (22:23)
[2024-03-26 06:22] LABS: Absolute Eosinophils 0.2 K/uL (0-0.5); Absolute Lymphocytes (CBC) 1.8 K/uL (0.7-4.9); Absolute Monocytes 0.4 K/uL (0.1-1.3); Absolute Neutrophil 4.1 K/uL (1.8-8.0); Basophils % 0.4 % (0-1.3); Eosinophils % 3.4 % (0-4.4); Hemoglobin 11.7 g/dL (12.0-15.0); Lymphocytes % 27.1 % (15.3-44.8); MCHC 32.5 g/dL (32.0-36.0); MCV 98.5 fL (80-100); Monocytes % 6.5 % (3.3-12.3); Neutrophils % 62.6 % (41.7-73.7); Platelets 268 thou/uL (152-406); RBC Red Blood Cell Count 3.65 M/uL (3.86-4.86); Red Cell Distribution Width 13.8 % (12.1-15.2)
[2024-03-26 06:46] LABS: Albumin 2.7 g/dL (3.4-5.0); Magnesium 2.1 mg/dL (1.6-2.4); Prealbumin 16.5 mg/dL (20-40)
[2024-03-26] MEDS: SIMETHICONE 80 MG CHEWABLE TAB PO PRN (20:12)
[2024-03-27 08:30] VITALS: BP 104/57; TEMP 97.3
== END 2024-03-27 11:40 | disposition home health service (06) | DRG 57 ==
LOC: 5TH 09:00
PROVIDERS: ADMIT Psychiatry & Neurology Neurology with Special Qualifications in Child Neurology; ATTEND Psychiatry & Neurology Neurology with Special Qualifications in Child Neurology
DX: G20.B2 Parkinson's disease with dyskinesia, with fluctuations (principal); E46 Unspecified protein-calorie malnutrition; F41.9 Anxiety disorder, unspecified; F32.A Depression, unspecified; M41.9 Scoliosis, unspecified; M48.02 Spinal stenosis, cervical region; M48.061 Spinal stenosis, lumbar region without neurogenic claudication; K59.00 Constipation, unspecified; F03.90 Unspecified dementia, unspecified severity, without behavioral disturbance, psychotic disturbance, mood disturbance, and anxiety; Z68.29 Body mass index [BMI] 29.0-29.9, adult; I95.1 Orthostatic hypotension; F41.8 Other specified anxiety disorders; G47.00 Insomnia, unspecified
CPT/HCPCS: 36415; 80048; 81001; 82040; 83735; 84132; 84134; 85025; 87086; 87088; 92507; 92523; 97110; 97116; 97129; 97163; 97165; 97530; 97542; J2003; J3420; J7030